=== PATIENT | female | born 1955 | race Caucasian/White ===

== ENCOUNTER 2016-05-26 07:30 | Inpatient (IN) | payer BC ==
--- NOTE | 2016-07-22 16:29 | HP ---
HISTORY AND PHYSICAL: DATE OF SURGERY: 07/28/16 PROCEDURE: Right total knee arthroplasty. CHIEF COMPLAINT: Right knee pain. HISTORY OF PRESENT ILLNESS: Ms. Obrien is a 61-year-old female with complaints of right knee pain. She has failed conservative management and has elected to proceed with a right total knee arthropla sty which is scheduled for 07/28/[address] Ferrer. PAST MEDICAL HISTORY: 1. Migraines. 2. GERD. 3. IBS. PAST SURGICAL HISTORY: 1. Right knee arthroscopy with ACL reconstruction. 2. Right ankle ligament repair, cyst removal from the right foot. 3. Synovial cyst removal, lumbar spine. 4. Bunionectomy bilaterally and hysterectomy. CURRENT MEDICATIONS: 1. Nexium. 2. Maxalt. 3. Alprazolam. 4. Acetaminophen. 5. Celebrex. 6. Dicyclomine. ALLERGIES: BIAXIN, AMPICILLIN, PROCARDIA, CARAFATE, LEVAQUIN and AXID. FAMILY HISTORY: Lung cancer and hypertension. SOCIAL HISTORY: She is a 61-year-old female. She lives with her . 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 She does not smoke, use drugs, or alcohol. REVIEW OF SYSTEMS: A complete 14-point review of systems was reviewed with the patient. It is posi tive for severe nausea after anesthesia. Otherwise, is all negative. PHYSICAL EXAMINATION GENERAL: She is well developed, well nourished. She is in no acute distress. VITAL SIGNS: She stands 5 feet 5 inches tall, weighs 180 pounds. Her blood pressure is 135/83. He r heart rate is 77. HEENT: Normocephalic, atraumatic. NECK: Supple. No palpable lymph nodes. Trachea is midline. CARDIO: Regular rate and rhythm. Strong S1, S2. No murmurs, gallops, or rubs. No peripheral edema . PULMONARY: The lungs are clear to auscultation bilaterally. No wheezes, rhonchi, or rales. ABDOMEN: Soft, nontender, and nondistended. MUSCULOSKELETAL: Right lower extremity, the skin is intact. She has tenderness over the medial and lateral joint line. There is a mild joint effusion. She has full range of motion. No varus or va lgus instability. 2+ dorsalis pedis pulses, intact sensation, and her lower extremity muscle group strengths are intact at 5/5. NEUROLOGIC: She is alert and oriented x3. Cranial nerves II through XII are intact. ASSESSMENT AND PLAN: Ms. Obrien is a 61-year-old female with complaints of right knee pain seconda ry to advanced osteoarthritis. She has failed conservative management and has elected to proceed wi th a right total knee arthroplasty. The surgery is scheduled for 07/28/[address] Prince welch discussed the risks and other benefits of the surgery with her today and all of her questions were answered. Coumadin, Percocet, and Colace were all sent to her pharmacy for postoperative pain cont rol and DVT prophylaxis. She will follow up with Dr. Ferrer 10 to 14 days after the surgery. NATIVIDAD FREITAS [id number]/[facility] #: [id number]
[2016-07-28] MEDS ORDERED: Buffered Lidocaine 1% SYRIN* 3 ML/SYR SYRINGE INTRADERM ONE (06:00)
[2016-07-28] MEDS ORDERED: Dexamethasone IV* 4 MG/ML 1 ML (4 MG) IV SLOW PU ONE (06:00)
[2016-07-28] MEDS ORDERED: fentaNYL* 50 MCG/ML 2 ML VIAL (100 MCG VIAL) ONE ×3 (09:20→12:10)
[2016-07-28] MEDS ORDERED: HYDROmorphone* 1 MG/ML 1 ML SYR ONE ×3 (09:20→13:15)
[2016-07-28] MEDS ORDERED: Morphine PF AMP (0.5MG/ML)* 5 MG/10 ML AMP ONE (09:20)
[2016-07-28] MEDS ORDERED: Midazolam* 1 MG/ML 5 ML VIAL (5 MG) ONE (09:20)
[2016-07-28] MEDS ORDERED: Dexamethasone IV* 4 MG/ML 1 ML (4 MG) ONE (09:26)
[2016-07-28] MEDS ORDERED: Clindamycin 900 MG IVPREMIX(* 900 MG/50 ML SDV IV ONE (09:27)
[2016-07-28] MEDS ORDERED: Bupivacaine 0.5% SDV PF* 30 ML VIAL ONE (10:10)
[2016-07-28] MEDS ORDERED: Dexmedetomidine* 200 MCG/2 ML 2 ML VIAL ONE (10:10)
[2016-07-28] MEDS ORDERED: Propofol* 10 MG/ML 20 ML BTL IV PUSH ONE (10:10)
[2016-07-28] MEDS ORDERED: fentaNYL* 50 MCG/ML 2 ML VIAL (100 MCG VIAL) IV PRN (11:15)
[2016-07-28] MEDS ORDERED: DiMENhydriNATE IV* 50 MG/ML VIAL IV PUSH PRN ×2 (11:15→15:48)
[2016-07-28] MEDS ORDERED: Ondansetron INJ* 2 MG/ML VIAL IV PRN ×2 (11:15→15:48)
[2016-07-28] MEDS ORDERED: Scopolamine 1.5 mg* PATCH TRANSDERM PRN ×2 (11:15→15:48)
[2016-07-28] MEDS ORDERED: Midazolam* 1 MG/ML 2 ML VIAL (2 MG) ONE (12:59)
[2016-07-28] MEDS ORDERED: Magnesium Hydroxide LIQ* 30 ML UDC PO PRN (15:47)
[2016-07-28] MEDS ORDERED: Bisacodyl SUPP* 10 MG SUPP PR PRN (15:47)
[2016-07-28] MEDS ORDERED: Polyethylene Glycol 3350* 17 GM PACKET PO PRN (15:47)
[2016-07-28] MEDS ORDERED: LACTULOSE* 30 ML UDC PO PRN (15:47)
[2016-07-28] MEDS ORDERED: diPHENhydraMINE IV* 50 MG/ML 1 ml VIAL (BENADRYL) IV PRN (15:48)
[2016-07-28] MEDS ORDERED: oxyCODONE/Acetamin 5/325 MG* TAB PO PRN (15:48)
[2016-07-28] MEDS ORDERED: Nalbuphine* 20 MG/ML 1 ML VIAL IV PRN (15:48)
[2016-07-28] MEDS ORDERED: Naloxone* 0.4 MG/ML 1 ML VIAL IV PRN (15:48)
[2016-07-28] MEDS ORDERED: Scopolomine PATCH Remove* 1 NOTE MISC PATCH OFF PRN (15:48)
[2016-07-28] MEDS ORDERED: ALPRAZolam TAB* 0.5 MG PO PRN (15:51)
--- NOTE | 2016-07-28 16:22 | RAD ---
Indication: Post op RIGHT total knee replacement. Comparison: March 09, 2016 Technique: Portable AP and cross table lateral views RIGHT knee. Report: Status post total knee replacement. Post-op fluid and gas is seen in the joint space and anterior subcutaneous tissues. Alignment is anatomic. No periprosthetic fracture evident. IMPRESSION: Normal post-op appearance following total RIGHT knee replacement.
[2016-07-28] MEDS ORDERED: Warfarin TAB(*) 6 MG PO ONE ×2 (17:00→21:00)
[2016-07-28] MEDS: Dicyclomine CAP* 10 MG PO SCH (17:52)
[2016-07-28] MEDS ORDERED: DiMENhydriNATE IV* 50 MG/ML VIAL ONE (18:03)
[2016-07-28] MEDS: Clindamycin 600 MG IVPREMIX(* 600 MG/50 ML SDV IV SCH (20:53)
[2016-07-28] MEDS: Docusate CAP* 100 MG PO SCH (20:53)
[2016-07-29] MEDS ORDERED: Acetaminophen TAB* 325 MG PO PRN (05:05)
[2016-07-29] MEDS ORDERED: oxyCODONE/Acetamin 5/325 MG* TAB PO PRN (05:05)
[2016-07-29] MEDS ORDERED: diPHENhydraMINE IV* 50 MG/ML 1 ml VIAL (BENADRYL) IV PRN (05:05)
[2016-07-29] MEDS: oxyCODONE/Acetamin 5/325 MG* TAB PO PRN ×5 (05:08→22:53)
[2016-07-29] MEDS: Clindamycin 600 MG IVPREMIX(* 600 MG/50 ML SDV IV SCH ×2 (05:09→13:01)
[2016-07-29 06:38] LABS: Hematocrit 32 % (35-47); Hemoglobin 10.7 g/dl (12.0-16.0)
[2016-07-29 06:54] LABS: BUN/Creatinine Ratio 18.8 (8-20); Calcium 8.7 mg/dL (8.6-10.3); EGFR African American 94.4 (>60); EGFR Non-African American 73.4 (>60); Potassium 3.9 mmol/L (3.5-5.0)
--- NOTE | 2016-07-29 09:04 | PN ---
Progress Note - Progress Note SOAP: Subjective: pt resting comfortably in bed with no complaints Objective: Vital Signs Temp Pulse Resp BP Pulse Ox 97.5 F 62 16 100/55 100 07/29/16 07:24 07/29/16 07:24 07/29/16 07:24 07/29/16 07:24 07/29/16 07:24 Laboratory Last Values Hgb 10.7 g/dl (12.0-16.0) L 07/29/16 06:14 Hct 32 % (35-47) L 07/29/16 06:14 INR (Anticoag Therapy) 1.06 (0.89-1.11) 07/29/16 06:14 Sodium 134 mmol/L (133-145) 07/29/16 06:14 Potassium 3.9 mmol/L (3.5-5.0) 07/29/16 06:14 Chloride 101 mmol/L (101-111) 07/29/16 06:14 Carbon Dioxide 28 mmol/L (22-32) 07/29/16 06:14 Anion Gap 5 mmol/L (2-11) 07/29/16 06:14 BUN 15 mg/dL (6-24) 07/29/16 06:14 Creatinine 0.80 mg/dL (0.51-0.95) 07/29/16 06:14 Est GFR ( Amer) 94.4 (>60) 07/29/16 06:14 Est GFR (Non-Af Amer) 73.4 (>60) 07/29/16 06:14 BUN/Creatinine Ratio 18.8 (8-20) 07/29/16 06:14 Glucose 165 mg/dL (70-100) H 07/29/16 06:14 Calcium 8.7 mg/dL (8.6-10.3) 07/29/16 06:14 incision: c/d/i PE: intact B/L LE stregths, intact sensation, 2+ DP Assessment: s/p right TKA Plan: 1) continue PT/OT 2) Continue Coumadin/ Lovenox for DVT prophylaxis; INR today 1.06, will give 8mg tonight 3) likely D/C home tomorrow
[2016-07-29] MEDS: Docusate CAP* 100 MG PO SCH ×2 (10:03→20:05)
[2016-07-29] MEDS: Enoxaparin(*) 30 MG/0.3 ML SYR SUBCUT SCH (13:01)
[2016-07-29] MEDS: Ondansetron TAB* 4 MG PO PRN (15:25)
[2016-07-29] MEDS: Morphine INJ* 2 MG/ML 1 ML SYRINGE IV PRN ×2 (15:25→20:06)
--- NOTE | 2016-07-29 16:16 | OP ---
OPERATIVE NOTE: DATE OF OPERATION: 07/28/2016 DATE OF : 1955 SURGEON: Yen Ferrer MD ORTHOTIST OR PROSTHETIST: NATIVIDAD Thomas ANESTHESIOLOGIST: Dr. Davis. ANESTHESIA TYPE: Spinal. PRE-OP DIAGNOSIS: Severe degenerative osteoarthritis of the right knee joint. POST-OP DIAGNOSIS: Severe degenerative osteoarthritis of the right knee joint. PROCEDURE PERFORMED: Right total knee arthroplasty. COMPLICATIONS: None. TOURNIQUET TIME: 53 minutes. SPECIMEN: Bone and cartilage from the right knee joint sent to pathology. ESTIMATED BLOOD LOSS: 300 cc. HARDWARE USED: [employer] cemented total knee hardware. For the right femur, a size 5 narrow Oxinium posterior stabilized, size 3 left tibia 29 mm 3-peg all poly patella and an 11 mm posterior stabilized insert size 3-4. BRIEF HISTORY/INDICATIONS: Ms. Obrien is a 61-year-old female with years of increasingly severe rig ht knee pain. She failed conservative treatment with antiinflammatory pain medications, intraarticu lar injections, physical therapy, and . She elected to undergo right total knee arthroplasty due to continued pain and decreased quality of life. Informed consent was obtained from the patient . She understood the risk of the procedure, included but were not limited to bleeding, infection, da mage to nearby structures, continued pain, need for further surgery, intraoperative fracture, nerve palsy, hardware failure or loosening, stiffness of knee, loss of motion, stroke, heart attack, blood clot, and . She wished to proceed. INTRAOPERATIVE FINDINGS: Intraoperatively, the patient was noted to have severe degeneration in a t ricompartmental fashion. Full loss of cartilage in the medial, lateral, and patellofemoral compartm ents. She had a 10-degree varus deformity. DESCRIPTION OF PROCEDURE: Ms. Obrien was identified in the preanesthesia unit. Her right lower extr emity was marked as the correct operative side. Informed consent was signed and placed in the chart . The patient was taken to the operating room and placed under spinal anesthesia. A Khan catheter was placed. Tourniquet was placed on the right thigh. Right lower extremity was prepped and drape d in usual sterile fashion. Preop time-out was made to correctly identify the patient's side and si te. Appropriate perioperative antibiotics were given within one hour of incision. A 12-cm midline incision was made with a 10 blade and carried down to the extensor mechanism. A new 10 blade was used to make a standard medial peripatellar arthrotomy. The patella was subluxed laterally. Electrocautery was used to subperiosteally elevate soft tissue off the superomedial tibia to the mid sagittal plane. Osteophytes along the proximal tibia were care fully removed. The knee was flexed up. The anterior horn of the lateral meniscus and ACL was sharply released. A d rill was used to enter the distal femur. Intramedullary distal femoral cutting guide was pinned in the position on the distal femur. Oscillating saw was used to make the appropriate distal femoral cu t. External rotation guide was pinned on the distal femur and the femur was sized to a size 5. Size 5 multicutting jig was placed on the distal femur. Oscillating saw was used to make the appropriat e 4 chamfer cuts. Any bone fragments were carefully removed. The PCL was completely released. The tibia was subluxed anteriorly. Extramedullary tibial cutting g uide was placed on the proximal tibia changing the proper position. Oscillating saw was used to forrest e a proximal tibial cut perpendicular to the mechanical axis of the tibia. The bone was carefully r emoved. The knee was brought into full extension. A spacer block had been fit with medial and later al ligamentous balancing. Flexion and extension gaps were well balanced. The knee was flexed up. Lamina bar assistant was placed both medially and laterally. Any remaining menis cus were carefully removed with electrocautery. Several osteophytes were removed from the posterior capsule. Tibial tray and drop kenya once again confirmed satisfactory tibial cut. A trial 5 narrow right femoral component was impacted on the femur. Trial size 3 tibia and 9 mm insert trial was odilia narayan. The knee was taken through a range of motion. The knee was stable with good range of motion, f ull extension to 130 degrees of flexion with good patellofemoral tracking. The patella was everted. 9 mm of patellar bone and cartilage was carefully removed from the patella using the oscillating s aw. The patella was sized to a 29. The 3 peg holes were drilled to the size 29 guide. Trial 29 pa tella was placed and the knee was taken through a range of motion. There was good patellofemoral tr acking. All trials were carefully removed. The tibia was subluxed anteriorly and sized to a size 3. Proxim al tibia was repaired using a keel punch. All bony cut surfaces were copiously irrigated with steri le saline and dried. Final implants were cemented in the place starting with the tibia followed by the femur and last the patella. A 11-mm insert trial was chosen and placed while the knee was broug ht out to full extension. The cement was allowed to fully cure. Tourniquet was turned down at 53 m inutes. Once the cement was fully cured, the insert trial was removed. Any excess cement was carefu lly removed around the implant. Electrocautery was used to obtain meticulous hemostasis. Final ins ert chosen was 11-mm size 3-4 posterior stabilized insert. This was locked into position of the tib ial tray. Stability of the insert was checked and rechecked and noted to be stable. The knee was co piously irrigated with sterile saline. Extensor mechanism was closed using interrupted #1 Vicryl. The rest of the incision was closed in a layered fashion using 0 and 2-0 Vicryl. Skin was closed us ing running 3-0 nylon suture. Xeroform, 4x4s, and Webril were used to cover the incision. Dinesh wrap and cold pack were placed over this. The patient's anesthesia was reversed without difficulty. She was taken to the PACU in stable condi tion. Intended DVT prophylaxis will be Coumadin with Lovenox bridge. Intended weightbearing will b e weightbearing as tolerated. [id number]/[facility] #: [id number]
[2016-07-29] MEDS ORDERED: Warfarin TAB(*) 4 MG PO ONE (17:00)
[2016-07-29] MEDS: Dicyclomine CAP* 10 MG PO SCH (17:59)
[2016-07-29] MEDS: oxyCODONE TAB* 5 MG TAB PO PRN (20:58)
[2016-07-30] MEDS: oxyCODONE TAB* 5 MG TAB PO PRN ×4 (00:56→21:49)
[2016-07-30] MEDS: oxyCODONE/Acetamin 5/325 MG* TAB PO PRN (03:10)
[2016-07-30] MEDS: Ondansetron TAB* 4 MG PO PRN ×2 (05:49→11:56)
[2016-07-30 07:27] LABS: Hematocrit 31 % (35-47); Hemoglobin 10.6 g/dl (12.0-16.0); Mean Platelet Volume 8 um3 (7.4-10.4)
[2016-07-30] MEDS ORDERED: oxyCODONE TAB* 5 MG TAB PO PRN (08:08)
[2016-07-30] MEDS: Docusate CAP* 100 MG PO SCH ×2 (08:36→21:49)
[2016-07-30] MEDS ORDERED: oxyCODONE/Acetamin 5/325 MG* TAB PO PRN ×2 (10:06→10:07)
--- NOTE | 2016-07-30 10:10 | PN ---
Progress Note - Progress Note SOAP: Subjective: [61 y/o female s/o R TKA 07/[address] Ferrer. Patient reports increased pain overnight, tearful, fatigued. Pain regimen discussed with patient. VSS overnight. ] Objective: [General- well appearing, NAD, AO, tearful MSK- dressing removed, incision D/C/I, new dressing placed, minimal dry bloody drainage noted on bandage, + DF/PF, PT, DP 2+ b/l, minimal edema RLE. sensation grossly intact RLE. Vital Signs Temp 97.8 F 07/30/16 07:59 Pulse 82 07/30/16 07:59 Resp 16 07/30/16 09:49 BP 123/73 07/30/16 07:59 Pulse Ox 99 07/30/16 07:59 Intake & Output 07/29/16 07/30/16 07/30/16 18:59 06:59 18:59 Intake Total 1420 1940 Output Total 1475 1750 Balance -55 190 Intake: IV Fluids 920 ABX - CLINDAMYCIN 100 LR 820 Oral 500 1940 Output: Urine 1200 1750 Khan 275 Laboratory Results - last 24 hr 07/30/16 07/30/16 07:10 07:10 Hgb 10.6 L Hct 31 L Plt Count 207 MPV 8 INR (Anticoag Therapy) 1.64 H Assessment: [61 y/o female s/o R TKA 07/[address] Ferrer] Plan: - DVT prophylaxis- coumadin, lovenox. Continue lovenox, coumadin doses to 6mg tonight. - Continue PT - Possible D/C tomorrow - Pain medication increased to oxycontin 10mg q12 hours, percocet 1-2 tablets q4hrs. ]
[2016-07-30] MEDS: oxyCODONE SR TAB(*) 10 MG TAB.SR PO SCH ×2 (11:56→21:49)
[2016-07-30] MEDS: Enoxaparin(*) 30 MG/0.3 ML SYR SUBCUT SCH (11:57)
[2016-07-30] MEDS: Morphine INJ* 2 MG/ML 1 ML SYRINGE IV PRN ×4 (12:33→23:50)
[2016-07-30] MEDS ORDERED: oxyCODONE TAB* 5 MG TAB PO ONE (16:10)
[2016-07-30] MEDS ORDERED: Warfarin TAB(*) 6 MG PO ONE (17:00)
[2016-07-30] MEDS: Dicyclomine CAP* 10 MG PO SCH (17:54)
[2016-07-30] MEDS: ALPRAZolam TAB* 0.5 MG PO SCH (21:48)
[2016-07-31] MEDS: oxyCODONE TAB* 5 MG TAB PO PRN ×4 (01:51→12:47)
[2016-07-31] MEDS: Morphine INJ* 2 MG/ML 1 ML SYRINGE IV PRN (04:07)
[2016-07-31] MEDS: Ondansetron TAB* 4 MG PO PRN (06:02)
[2016-07-31] MEDS: Docusate CAP* 100 MG PO SCH (08:35)
[2016-07-31] MEDS: ALPRAZolam TAB* 0.5 MG PO SCH (08:36)
[2016-07-31] MEDS: oxyCODONE SR TAB(*) 10 MG TAB.SR PO SCH (08:36)
[2016-07-31 08:44] VITALS: BP 144/71
[2016-07-31 08:53] LABS: Hematocrit 34 % (35-47); Hemoglobin 11.3 g/dl (12.0-16.0)
--- NOTE | 2016-07-31 10:03 | PN ---
Progress Note - Progress Note SOAP: Subjective: [61 y/o female s/p R TKA 07/[address] Ferrer. Patient feeling better today, slept last night, pain under control with current regimen. ANxious about returning to home, no steps, family will be with patient. No SOB, N. [place] with PT. ] Objective: [General- Well appearing, NAD, sitting in chair comfortably, mildly anxious MSK- dressing removed, incision D/C/I, new dressing placed, + DF/PF, PT, DP 2+ b /l, no edema RLE. sensation grossly intact RLE. ] Vital Signs Temp 97.9 F 07/31/16 08:04 Pulse 92 07/31/16 08:04 Resp 20 07/31/16 08:36 BP 144/71 07/31/16 08:04 Pulse Ox 100 07/31/16 08:04 Intake & Output 07/30/16 07/31/16 07/31/16 18:59 06:59 18:59 Intake Total 600 0 200 Output Total 825 1750 Balance -225 -1750 200 Intake: Oral 600 0 200 Output: Urine 825 1750 Other: # Bowel Movements 0 Laboratory Results - last 24 hr 07/31/16 07/31/16 08:04 08:04 Hgb 11.3 L Hct 34 L INR (Anticoag Therapy) 2.44 H Assessment: [61 y/o female s/p R TKA 07/[address] Ferrer.] Plan: [- D/C to home today - INR theraputic, d/c lovenox, hold INR today - F/U with Dr Ferrer within 1 week - Continue current pain regimen, spoke about titrating down at home based on pain level. ] Active Medications Generic Name Dose Route Start Last Admin Trade Name Freq PRN Reason Stop Dose Admin Acetaminophen 650 mg 07/29/16 05:05 Tylenol Tab* PO Q4H PRN PAIN OR TEMPERATURE Alprazolam 0.5 mg 07/30/16 21:00 07/31/16 08:36 Xanax Tab* PO 0.5 mg TID BRANNON Administration Bisacodyl 10 mg 07/28/16 15:47 Dulcolax Supp* SD DAILY PRN constipation Dicyclomine HCl 10 mg 07/28/16 18:00 07/30/16 17:54 Bentyl Cap* PO Not Given QPM BRANNON Diphenhydramine HCl 12.5 mg 07/29/16 05:05 Benadryl Iv* IV Q6H PRN PRURITIS Docusate Sodium 100 mg 07/28/16 21:00 07/31/16 08:35 Colace Cap* PO 100 mg BID BRANNON Administration Lactated Ringer's 1,000 mls @ 100 mls/hr 07/28/16 16:00 07/29/16 04:33 Lactated Ringers 1000 Ml Bag* IV 100 mls/hr PER RATE BRANNON Administration Lactulose 30 ml 07/28/16 15:47 Lactulose* PO Q6H PRN constipation Magnesium Hydroxide 30 ml 07/28/16 15:47 07/31/16 08:35 Milk Of Magnesia Liq* PO 30 ml Q6H PRN Administration constipation Morphine Sulfate 2 mg 07/29/16 05:05 07/31/16 04:07 Morphine Inj (Syringe)* IV 2 mg Q2H PRN Administration PAIN Ondansetron HCl 4 mg 07/29/16 05:05 07/31/16 06:02 Zofran Tab* PO 4 mg Q6H PRN Administration NAUSEA Oxycodone HCl 10 mg 07/30/16 12:00 07/31/16 08:36 Oxycontin(*) PO 10 mg Q12HR BRANNON Administration Oxycodone HCl 15 mg 07/30/16 16:04 07/31/16 05:59 Roxycodone Tab* PO 15 mg Q3H PRN Administration PAIN - MODERATE Pharmacy Profile Note 1 note 07/31/16 11:15 07/31/16 09:50 Scopolomine Patch Remove* PATCH OFF 07/31/16 11:16 Not Given Q72H ONE Pharmacy Profile Note 0 note 07/31/16 17:00 Coumadin Daily Reminder* FOLLOW UP 1700 BRANNON Polyethylene Glycol/Electrolytes 17 gm 07/28/16 15:47 Miralax* PO DAILY PRN Constipation Scopolamine 1 patch 07/28/16 15:48 Transderm-Scop 1.5 Mg Patch* TRANSDERM Q72H PRN nausea
[2016-07-31] MEDS ORDERED: Scopolomine PATCH Remove* 1 NOTE MISC PATCH OFF ONE (11:15)
--- NOTE | 2016-08-01 03:44 | DS ---
DISCHARGE SUMMARY: DATE OF ADMISSION: 07/28/16 DATE OF DISCHARGE: 07/31/16 PROCEDURE: Right total knee arthroplasty. CHIEF COMPLAINT: 1. Right knee osteoarthritis. 2. Migraines. 3. GERD. 4. IBS. DISCHARGE DIAGNOSES: 1. Status post right total knee arthroplasty. 2. Migraines. 3. Gastroesophageal reflux disease. 4. Irritable bowel syndrome. CONSULTATIONS: 1. Physical Therapy. 2. Occupational Therapy. BRIEF HISTORY: Ms. Obrien is a very pleasant 61-year-old female with severe end - stage degenerative osteoarthritis of the right knee who failed conservative treatment and elected to undergo a right total knee arthroplasty on 07/28/[address] Yen Ferrer. HOSPITAL COURSE: Ms. Obrien was admitted to the [facility] on where she underwent a right total knee arthroplasty. Postoperatively, she recovered on the surgical short stay unit. By postoperative day 2, her Khan was removed. She was voiding on her own without difficulty. She advanced to regular diet without difficulty. She had some difficulty with controlling her pain and her pain medication was increased to OxyContin 10 mg b.i.d. and oxycodone 5 to 15 mg q.3 hours p.r.n. with adequate pain relief. She advanced appropriately with physical therapy. Her DVT prophylaxis was managed with Lovenox and Coumadin until she reached a therapeutic INR. By postoperative day 3, she was orthopedically and medically stable for discharge to go home with home services. PHYSICAL EXAMINATION: General: Well-appearing, in no acute distress, alert and oriented, resting comfortably in chair, mildly anxious. Vital Signs: On the date of discharge, temperature 97.9, pulse 92, respirations 20, blood pressure 144/71, pulse ox 100% on room air. Extremities: Right lower extremity , the dressing was removed. The incision is clean, dry and intact. A new dressing was placed. Positive dorsiflexion and plantar flexion, bilateral lower extremities. Posterior tibial and dorsalis pedis pulses 2+ bilaterally with no edema. The right lower extremity grossly intact. Sensation grossly intact, right lower extremity. LABORATORY DATA: On date of discharge, hemoglobin and hematocrit of 11.3 and 34 with an INR of 2.44. Radiographs: Postoperative films showed a prosthetic knee in proper placement. DISCHARGE MEDICATIONS: 1. Xanax 0.5 mg p.o. t.i.d. p.r.n. 2. Bentyl 10 mg p.o. q.p.m. 3. Colace 100 mg p.o. b.i.d. 4. OxyContin 10 mg p.o. q.12 hours. 5. Oxycodone 5 to 15 mg p.o. q.3 hours p.r.n. 6. Acetaminophen 500 mg p.o. q.6 hours p.r.n. 7. Doxycycline 100 mg p.o. b.i.d. 8. Nexium 40 mg p.o. q.a.m. 9. Migdalia D 1 tablet daily. 10. Maxalt 10 mg p.o. t.i.d. p.r.n. 11. Coumadin 10 mg p.o. q. 5 p.m. daily 1 to 3 tablets as directed by physician. CONDITION ON DISCHARGE: Stable. DISCHARGE INSTRUCTIONS: Ms. Obrien is a very pleasant 61-year-old female postoperative day 3, status post right total knee arthroplasty, which was uncomplicated. She is orthopedically and medically stable for discharge home with home services. Her labs and vital signs are stable. She will restart her home medications. She will hold her Coumadin dose tonight and will have an INR draw on 08/01/16. She will have INR draws every Monday and with visiting home nurse services. She will remain weightbearing as tolerated on the right lower extremity. She will have home physical therapy up to twice a week. She will take OxyContin 10 mg q.12 hours and oxycodone 5 to 15 mg as needed p.r.n. q.3 hours. She will take Colace up to 3 times a day for constipation. She will follow up with Dr. Ferrer on 08/05/16 for incision check and suture removal. She was instructed to go to the ER should she develop chest pain or shortness of breath. Should she develop fever, increasing pain or redness, she is to call the office immediately. NATIVIDAD GARCIA [id number]/[facility] #: [id number] [place]
== END 2016-07-31 13:30 | disposition home or self-care (01) | DRG 302 ==
LOC: AA 07-28 09:09 → SSU 07-28 17:45
PROVIDERS: ADMIT Orthopaedic Surgery Adult Reconstructive Orthopaedic Surgery; ATTEND Orthopaedic Surgery Adult Reconstructive Orthopaedic Surgery
PROC: 0SRC0J9 Replacement of Right Knee Joint with Synthetic Substitute, Cemented, Open Approach (ICD-10-PCS; principal; 2016-07-28 11:30)
DX: M17.11 Unilateral primary osteoarthritis, right knee (principal); G43.909 Migraine, unspecified, not intractable, without status migrainosus; M25.761 Osteophyte, right knee; K21.9 Gastro-esophageal reflux disease without esophagitis; K58.9 Irritable bowel syndrome, unspecified; Z79.1 Long term (current) use of non-steroidal anti-inflammatories (NSAID); Z79.899 Other long term (current) drug therapy; Z88.1 Allergy status to other antibiotic agents; Z88.8 Allergy status to other drugs, medicaments and biological substances; Z80.1 Family history of malignant neoplasm of trachea, bronchus and lung; Z82.49 Family history of ischemic heart disease and other diseases of the circulatory system
CPT/HCPCS: 36415; 80048; 85014; 85018; 85049; 85610; 94760; A9270-GY; J1100; J1170; J1240; J1650; J2250; J2270; J2704; J3010

== ENCOUNTER 2016-09-11 10:05 | Emergency (ER) | payer BC ==
[2016-09-11 11:00] VITALS: BP 127/83
--- NOTE | 2016-09-11 11:52 | UC ---
Complaint Female HPI - HPI Summary HPI Summary: PATIENT PRESENTS WITH SUPRAPUBIC PAIN, URGENCY BUT IS UNABLE TO URINATE WHEN SHE FEELS SHE NEEDS TO GO. SHE IS SEEN BY DR. ELENA. SHE WAS ABLE TO SEE HIM LAST WEEK FOR BLOOD IN THE URINE, CULTURE WAS SENT, BUT NO GROWTH. SHE CALLED [facility] AGAIN TO EXPLAIN SHE WAS HAVING UTI SYMPTOMS, AND HE GAVE HER CIPRO FOR 2 DAYS UNTIL FOLLOW UP ON MONDAY. TODAY SHE ARRIVES D/T WORSENING PAIN AND FEELS SHE NEEDS TO CONTINUE AND ANTIBIOTIC. SHE IS UNABLE URINATE WHILE IN THE UC. - History Of Current Complaint Hx Obtained From: Patient Hx Last Menstrual Period: 20 yrs ?: No Onset/Duration: Gradual Onset Timing: Constant Severity Initially: Moderate Severity Currently: Moderate Pain Intensity: 8 Pain Scale Used: 0-10 Numeric Character: Dull, Cramping Aggravating Factor(s): Movement, Coughing, Urination Alleviating Factor(s): Meds Associated Signs And Symptoms: Positive: Negative - Risk Factors Ectopic Risk Factor: Maternal Age ^ 30 Ovarian Torsion Risk Factor: Negative <Carmen Markham - Last Filed: 09/11/16 11:42> <Julisa Flores - Last Filed: 09/11/16 13:31> - History Of Current Complaint Chief Complaint: UCGU Stated Complaint: URINARY Time Seen by Provider: 09/11/16 11:22 - Allergies/Home Medications Allergies/Adverse Reactions: Allergies Allergy/AdvReac Type Severity Reaction Status Date / Time Ampicillin Allergy Intermediate Hives Verified 09/11/16 11:00 Clarithromycin [From Biaxin] Allergy Intermediate Hives Verified 09/11/16 11:00 Nifedipine [From Procardia] Allergy Intermediate Feet swell Verified 09/11/16 11 :00 and burn Nizatidine [From Axid] Allergy Intermediate migraines Verified 09/11/16 11:00 Sucralfate [From Carafate] Allergy Intermediate metalic Verified 09/11/16 11:00 taste Indomethacin Allergy Headache Verified 09/11/16 11:00 Levofloxacin [From Levaquin] Allergy Muscle Ache Verified 09/11/16 11:00 Saccharin Allergy Hives Verified 09/11/16 11:00 Alcohol AdvReac Headache Verified 09/11/16 11:00 PMH/Surg Hx/FS Hx/Imm Hx Previously Healthy: Yes - DIABETES, KIDNEY STONES AND ANXIETY Endocrine History Of: Reports: Diabetes - ONLY WHEN ...DOES NOT HAVE DIABETES NOW Cardiovascular History Of: Denies: Cardiac Disorders, Hypertension, Pacemaker/ICD, Congestive Heart Failure, Deep Vein Thrombosis Respiratory History Of: Denies: Asthma GI/ History Of: Reports: Kidney Stones - 20 YEARS AGO, NONE SINCE Denies: Renal Disease Neurological History Of: Reports: Migraine - PRN MED Psychological History Of: Reports: Anxiety - PRN MED - Surgical History Surgical History: Yes Surgery Procedure, Year, and Place: Hysterectomyright knee surgeryright ankle ligamentbunionectomy bilatlap surgsynovial cyst from spine - Family History Known Family History: Positive: Unknown - Social History Occupation: Employed Full-time Lives: With Family Alcohol Use: None Alcohol Amount: allergic to it Substance Use Type: None Smoking Status (MU): Former Smoker Amount Used/How Often: 1 ppd Have You Smoked in the Last Year: No When Did the Patient Quit Smoking/Using Tobacco: 1993 - Immunization History Most Recent Influenza Vaccination: 1850-8588 Most Recent Pneumonia Vaccination: Never <Carmen Markham - Last Filed: 09/11/16 11:42> Review of Systems Constitutional: Negative Skin: Negative Respiratory: Negative Cardiovascular: Negative Gastrointestinal: Negative Genitourinary: Dysuria, Urgency, Other - SPASMS Motor: Negative Musculoskeletal: Negative Neurological: Negative Psychological: Anxious All Other Systems Reviewed And Are Negative: Yes <Carmen Markham - Last Filed: 09/11/16 11:42> Physical Exam Triage Information Reviewed: Yes Appearance: Well-Appearing, No Pain Distress, Well-Nourished Vital Signs: Initial Vital Signs Temp 98.2 F 09/11/16 10:53 Pulse 83 09/11/16 10:53 Resp 18 09/11/16 10:53 BP 127/83 09/11/16 10:53 Pulse Ox 100 09/11/16 10:53 Vital Signs Reviewed: Yes Eye Exam: Normal Eyes: Positive: Conjunctiva Clear Neck exam: Normal Neck: Positive: Supple, Nontender, No Lymphadenopathy Respiratory Exam: Normal Respiratory: Positive: Chest non-tender, Lungs clear Cardiovascular Exam: Normal Cardiovascular: Positive: RRR Musculoskeletal Exam: Normal Musculoskeletal: Positive: Strength Intact Neurological Exam: Normal Psychological: Positive: Normal Response To Family, Age Appropriate Behavior Skin Exam: Normal <Carmen Markham - Last Filed: 09/11/16 11:42> Vital Signs: Initial Vital Signs Temp 98.2 F 09/11/16 10:53 Pulse 83 09/11/16 10:53 Resp 18 09/11/16 10:53 BP 127/83 09/11/16 10:53 Pulse Ox 100 09/11/16 10:53 <Julisa Flores - Last Filed: 09/11/16 13:31> Complaint Female Dx - Course Course Of Treatment: PATIENT UNABLE TO URINATE WHILE IN UC. PATIENT HAS CLOSE F /U WITH DR. ELENA TOMORROW. HE HAD GIVEN HER CIPRO BUT DID NOT GIVE PYRIMIDINE. SHE PICKED UP AZO AT THE PHARMACY AND STATED IT HELPED HER SYMPTOMS. CULTURE DID NOT GROW BACTERIA FROM DR. ELENA OFFICE OF A URINE DIP. IT WAS EXPLAINED TO PATIENT THIS MAY BE BLADDER SPASMS AND SHE WILL NEED FOLLOW UP. HOWEVER, WILL FILL A BACTRIM RX AND GIVE PYRIMIDINE AND HAVE HER RETURN TO DR. ELENA TMW. - Differential Dx/Diagnosis Differential Diagnosis/HQI/PQRI: Cervicitis, Pelvic Inflammatory Disease, Urinary Tract Infection Provider Diagnoses: BLADDER SPASMS <Carmen Markham - Last Filed: 09/11/16 11:42> Discharge <Carmen Markham - Last Filed: 09/11/16 11:42> <Julisa Flores - Last Filed: 09/11/16 13:31> - Discharge Plan Condition: Stable Disposition: HOME Prescriptions: Phenazopyridine 200 mg (NF) [Pyridium 200 MG tab] 200 mg PO TID #30 tab Sulfamethox/Trimethoprim DS* [Bactrim DS 800/160 TAB*] 1 tab PO BID #6 tab Patient Education Materials: Urinary Tract Infection in Women (ED) Referrals: Olaf Glaser MD [Primary Care Provider] - Additional Instructions: Dx. Urinary Tract Infection Drink plenty of fluids. Supplement with cranberry or murphy juice. You may also take an over the counter cranberry supplement. If you have any questions about this, you may ask your pharmacist. If your symptoms have not improved in 1-2 days, if you develop fever, sweats or chills, please go to your emergency room, or call your PCP. Antibiotics were prescribed to you. Please take as directed. Supplement with over the counter probiotics on the opposite schedule of your antibiotic to prevent secondary infections. Do not take together as they may counteract each other. Pyridium: This medication is used to treat pain, burning, increased urination, and increased urge to urinate. These symptoms are usually caused by infection, injury, surgery, catheter, or other conditions that irritate the lower urinary tract. Pyridium will treat the symptoms of a urinary tract infection, but this medication does not treat the actual infection. Take the antibiotic that your doctor prescribes to treat your infection. Pyridium will most likely darken the color of your urine to an orange or red color. This is a normal effect and is not cause for alarm unless you have other symptoms such as pale or yellowed skin, fever, stomach pain, nausea, and vomiting. Darkened urine may also cause stains to your underwear, which may or may not be removed by laundering. It can also permanently stain soft contact lenses, and you should not wear them while taking this medicine. Attestation Statement User Type: Provider - I was available for consult. This patient was seen by the PATRICK. The patient was not presented to, seen by, or examined by me. -Anastasiya <Julisa Flores - Last Filed: 09/11/16 13:31>
== END 2016-09-11 11:43 | disposition home or self-care (01) ==
LOC: UCCORT 10:05
DX: N32.89 Other specified disorders of bladder (principal); Z87.442 Personal history of urinary calculi; G43.909 Migraine, unspecified, not intractable, without status migrainosus; F41.9 Anxiety disorder, unspecified; Z90.710 Acquired absence of both cervix and uterus; Z88.1 Allergy status to other antibiotic agents; Z88.8 Allergy status to other drugs, medicaments and biological substances; Z87.891 Personal history of nicotine dependence
CPT/HCPCS: 99211; G0463

== ENCOUNTER 2017-07-29 09:01 | Emergency (ER) | payer BC ==
--- OUTSIDE RECORDS SUMMARY | 2017-07-29 09:11 | XMS REPORT ---
:1955 Author Organization [facility] Address [address] [place] [address] Care Team Providers Name Role Phone Yoel Reynoso Unavailable Unavailable PROBLEMS Type Condition ICD9-CM Code [id number] Onset Condition SNOMED Code Code Dates Status Problem Postmenopausal N95.2 Active 73272760 atrophic vaginitis Problem Other abnormal and R92.8 Active 208549512 inconclusive findings on diagnostic imaging of breast Problem Pelvic and perineal R10.2 Active 686815046 pain Problem Acute vaginitis N76.0 Active 38961533 Problem Flushing R23.2 Active 39703153 Problem Candidiasis of B37.3 Active 91417686 vulva and vagina Problem Urinary tract N39.0 Active 79491395 infection, site not specified Problem Menopausal and N95.1 Active 707317899 female climacteric states ALLERGIES No Information ENCOUNTERS Encounter Location Date Diagnosis [facility] [address] 18 Sep, 2017 OBGYN [place], [place] [id number] [facility] 103 Jun, OBGYN [place] [id number] [facility] 103 Jun, Candidiasis of vulva and OBGYN [facility] vagina B37.3 ; Encounter [place] [id number] for gynecological examination (general) (routine) with abnormal findings Z01.411 ; Encounter for screening for malignant neoplasm of cervix Z12.4 ; Encounter for screening mammogram for malignant neoplasm of breast Z12.31 and Encounter for screening for malignant neoplasm of colon Z12.11 [facility] 103 08 Apr, 2017 Candidiasis of vulva and OBGYN [facility] vagina B37.3 [place] [id number] [address] Feb, Candidiasis of vulva and OBGYN [address] [place], vagina B37.3 [place] [id number] [facility] 103 Jan, OBGYN [place] [id number] [facility] 103 Jan, Candidiasis of vulva and OBGYN [facility], vagina B37.3 [place] [id number] [facility] 103 Dec, Candidiasis of vulva and OBGYN [facility], vagina B37.3 [place] [id number] [facility] 103 Nov, OBGYN [place] [id number] [facility] 103 Oct, OBG[place] [id number] [facility] 103 Sep, Other specified OBN [facility], noninflammatory disorders [place] [id number] of vagina N89.8 and Hematuria, unspecified R31.9 [facility] 103 Sep, Candidiasis of vulva and OBGYN [facility], vagina B37.3 [place] [id number] [facility] 103 Sep, [facility] R10.2 [place] [id number] [facility] 103 Sep, Pelvic and perineal pain OBGYN [facility], R10.2 [place] [id number] [facility] 103 Sep, Acute vaginitis N76.0 [place] [id number] [facility] 103 Sep, [facility] R[facility] ; Acute vaginitis [place] [id number] N76.0 and Urinary tract infection, site not specified N39.0 [facility] 103 Sep, OBGYN [place] [id number] [facility] 103 August, OBG[place] [id number] [facility] 103 Jun, [facility] gy[facility]ological examination [place] [id number] (general) (routine) with abnormal findings Z01.411 ; Encounter for screening mammogram for malignant neoplasm of breast Z12.31 ; Encounter for screening for malignant neoplasm of colon Z12.11 ; Menopausal and female climacteric states N95.1 ; Flushing R23.2 and Candidiasis of vulva and vagina B37.3 [facility] 103 Jun, Candidiasis of vulva and OBGYN [facility], vagina B37.3 [place] [id number] [facility] 103 May, Encounter for [facility], gynecological examination [place] [id number] (general) (routine) with abnormal findings Z01.411 ; Encounter for screening mammogram for malignant neoplasm of breast Z12.31 ; Encounter for screening for malignant neoplasm of colon Z12.11 ; Menopausal and female climacteric states N95.1 ; Flushing R23.2 and Candidiasis of vulva and vagina B37.3 [facility] 103 May, ROUTINE HEALTH PSYCHOLOGIST EXAMINATION [facility], V72.31 ; [place] [id number] Mammogram-Abnormal 793.80 ; Atrophic Vaginitis 627.3 ; SCREEN MALIG NEOP-COLON V76.51 and SCREEN MAMMOGRAM NEC V76.12 [facility] 103 Nov, [place] [id number] [facility] 103 Nov, Mammogram 793.80 [place] [id number] [facility] 103 Nov, [place] [id number] [facility] 103 August, [place] [id number] [facility] 103 Jun, Mammogram-Abnormal 793.80 [place]BG[place] [id number] [facility] 103 May, ROUTINE HEALTH PSYCHOLOGIST EXAMINATION OBGYN [facility], V72.31 ; SCREEN MALIG [place] [id number] NEOP-COLON V76.51 and SCREEN MAMMOGRAM NEC V76.12 [facility] 103 May, [place] [id number] [facility] 103 May, [place], [place] [id number] [facility] 103 May, ROUTINE HEALTH PSYCHOLOGIST EXAMINATION OBGYN [facility], V72.31 ; Atrophic [place] [id number] Vaginitis 627.3 ; Candidal vulvovaginitis 112.1 ; SCREEN MAMMOGRAM NEC V76.12 and SCREEN MALIG NEOP-COLON V76.51 [facility] 103 May, [place] [id number] [facility] 103 May, ROUTINE HEALTH PSYCHOLOGIST EXAMINATION OBGYN [facility], V72.31 ; Atrophic [place] [id number] Vaginitis 627.3 and Candidal vulvovaginitis 112.1 [facility] 103 Jan, [place] [id number] [facility] 103 August, [place] [id number] [facility] 103 Apr, ROUTINE HEALTH PSYCHOLOGIST EXAMINATION OBGYN [facility], V72.31 [place] [id number] [facility] 103 Jan, [place] [id number] [facility] 103 Mar, ROUTINE HEALTH PSYCHOLOGIST EXAMINATION OBGYN [facility], V72.31 and Candidiasis NOS [place] [id number] 112.9 [facility] 103 Mar, ROUTINE HEALTH PSYCHOLOGIST EXAMINATION OBGYN [facility], V72.31 and Candidiasis of [place] [id number] vagina 112.1 [facility] 103 Jan, [place] [id number] [facility] 103 Jan, [place] [id number] [facility] 103 Dec, [place] [id number] [facility] 103 August, [place] [id number] [facility] 103 Jul, [place] [id number] [facility] 103 Apr, [place] [id number] [facility] 103 Apr, [place] [id number] [facility] 103 Apr, [place] [id number] [facility] 103 Apr, [place] [id number] [facility] 103 Apr, [place] [id number] [facility] 103 Mar, ROUTINE HEALTH PSYCHOLOGIST EXAMINATION OBGYN [facility], V72.31 ; Candidiasis of [place] [id number] vagina 112.1 and Urinary frequency 788.41 [facility] 103 Feb, [place] [id number] [facility] 103 August, [place] [id number] [facility] 103 Jan, [place] [id number] [facility] 103 16 Jan, 2006 PELVIC PAIN 625.9 [place] [id number] [facility] 103 09 Jan, 2006 PELVIC PAIN 625.9 [place] [id number] [facility] 103 Jan, [place] [id number] [facility] 103 Jan, PELVIC PAIN 625.9 and OBGYN [facility], Ovarian cyst NOS 620.2 [place] [id number] [facility] 103 Jan, ROUTINE HEALTH PSYCHOLOGIST EXAMINATION OBGYN [facility], V72.31 ; Ovarian cyst NOS [place] [id number] 620.2 ; PELVIC PAIN 625.9 and Candidiasis of vagina 112.1 UNKNOWN Jan, [facility] 103 15 Dec, 2004 [place] [id number] [facility] Dec, [place] [id number] [facility] 103 Dec, [place] [id number] [facility] 103 Dec, Well Adult exam V 70.0 ; OBGYN [facility], ROUTINE HEALTH PSYCHOLOGIST EXAMINATION [place] [id number] V72.31 and Candidiasis of vagina 112.1 [facility] 103 Nov, [place] [id number] [facility] 103 Nov, [place] [id number] IMMUNIZATIONS No Known Immunizations SOCIAL HISTORY Never Assessed REASON FOR REFERRAL FUNCTIONAL STATUS PLAN OF CARE VITAL SIGNS MEDICATIONS Unknown Medications PROCEDURES No Known procedures RESULTS No Results REASON FOR VISIT CMP due early September MEDICAL (GENERAL) HISTORY Type Description Date Medical History Bladder Infections Medical History diabetes mellitus-gestational Medical History IBS Medical History Arthritis Medical History migraines Medical History OAB Medical History chronic yeast infections Surgical History Hysterectomy 1995 Surgical History knee surgery 1979 Surgical History ankle surgery 1978 Surgical History cyst on spine removed 11/10/09 Surgical History R foot surgery x 2 2011 Surgical History cinovial cyst removed from spine 2012 Surgical History Total Knee replacement - right 2017 Hospitalization History see above Hospitalization History Kidney stones Hospitalization History [facility]
--- OUTSIDE RECORDS SUMMARY | 2017-07-29 09:11 | XMS REPORT ---
:1955 External Reference #:[id number] Author Organization [facility] Address [address] [place] [address] Phone [phone] Care Team Providers Name Role Phone Olaf Glaser M.D. Care Team Information Hyperion Developer Unavailable Olaf Glaser M.D. Primary Care Physician Unavailable Payers Type Date Identification Numbers Payment Provider Subscriber Commercial Policy Number: [id number] [facility] [employer] [employer] PayID: [id number] [address] [address] [place] [address] Problems Date Description Provider Status Onset: 07/01/2013 Chronic rhinitis Dexter Osorio MD Active Onset: 09/25/2015 Other specified disorders of Eustachian Dexter Osorio MD Active tube, bilateral Onset: 09/25/2015 Temporomandibular joint disorder Dexter Osorio MD Active Onset: 04/23/2015 Disorder of nasal cavity Dexter Osorio MD Active Family History Date Family Member(s) Problem(s) Comments General Cancer General Diabetes General Hearing Loss General Migraine Social History Type Date Description Comments Occupation [employer] Cigarette Use Former Cigarette Smoker 1/2 Pack x 20 yrs, quit at age 40 Daily Cigars Never Smoked Cigars Pipe Never Smoked A Pipe Smokeless Tobacco Never Used Smokeless Tobacco ETOH Use Denies alcohol use Allergies, Adverse Reactions, Alerts Date Description Reaction Status Severity Comments 06/28/2013 Carafate metallic taste in mouth active 06/28/2013 Nizatidine migraine active 06/28/2013 Biaxin hives active 06/28/2013 Ampicillin hives active 06/28/2013 Procardia feet swelling, burning active Medications Medication Date Status Form Strength Qnty SIG Indications Ordering Provider Nexium Active Capsules DR 40mg 60cap 1 po qd Alfredito, /0000 s Olaf Wolff Maxalt-SECURITY CONTROL ASSESSOR Active Tablets 10mg 8tabs 1 under Alfredito, /0000 Dispers tongue Olaf hernandez M.D. headache, may repeat in 2 hours if needed Diflucan Active Tablets 150mg 3tabs 1 po prn Alfredito, /0000 for yeast Olaf Wolff Xanax Active Tablets 5mg prn for Alfredito, /0000 anxiety Angemaaddi Wolff Migdalia D Active prn Self 0000 Betamethasone Active Cream 0.05% apply Alfredito, Dipropionate twice a Ahmad day [facility] affected area Rizatriptan Active Tablets 10mg Unknown Benzoate /0000 Nitrofurantoin Active Capsules 100mg Unknown Monohydrate/Macro /0000 crystals Omeprazole Active Capsules DR 40mg Unknown /0000 Alprazolam Active Tablets 0.5mg take 1 Unknown /0000 tablet by mouth three times a day Sulfamethoxazole/ Active Tablets 800-160mg take 1 Unknown Trimethoprim DS 0000 tablet by mouth twice a day Methylprednisolon Active TBPK 4mg Unknown e /0000 Vesicare Active Tablets 10mg Unknown /0000 Flonase 08/02 Hx Suspension 50mcg/Act 1unit 2 puffs Dexter s both side Ruparelia - once per MD Medrol Dosepak 06/28 Hx Tablets 4mg 1tabs as Dexter prescribed Devon - MD 08/01 Doxycycline Hx Capsules 100mg 14cap take one Alfredito, Hyclate /0000 s capsule by Ahmad - mouth M.D. 08/01 every for 14 days Fluticasone Hx Suspension 50mcg/Act 3unit 2 sprays Unknown Propionate /0000 s in each - nostril 10/10 Gentamicin Hx Unknown Alfredito, Sulfate /0000 Ahmad - [facility] 10/10 Vital Signs Date Vital Result Comment 07/14/2017 Weight 175.00 lb Weight in kg's 79.380 Height 64 inches 5'4" Height in cm's 162.6 cm BMI (Body Mass Index) 30.0 kg/m2 09/25/2015 BP Systolic 113 mmHg BP Diastolic 82 mmHg Heart Rate 83 /min Respiratory Rate 17 /min Weight 180.00 lb Weight in kg's 81.648 Height 64 inches 5'4" Height in cm's 162.6 cm BMI (Body Mass Index) 30.9 kg/m2 10/10/2013 BP Systolic 131 mmHg BP Diastolic 73 mmHg Heart Rate 77 /min Respiratory Rate 16 /min Weight 174.00 lb Weight in kg's 78.926 Height 64 inches 5'4" Height in cm's 162.6 cm BMI (Body Mass Index) 29.9 kg/m2 08/02/2013 BP Systolic 120 mmHg BP Diastolic 77 mmHg Heart Rate 65 /min Respiratory Rate 16 /min Weight 172.00 lb Weight in kg's 78.019 Height 64 inches 5'4" Height in cm's 162.6 cm BMI (Body Mass Index) 29.5 kg/m2 06/28/2013 BP Systolic 141 mmHg BP Diastolic 85 mmHg Heart Rate 75 /min Respiratory Rate 16 /min Weight 172.12 lb Weight in kg's 78.076 Height 64 inches 5'4" Height in cm's 162.6 cm BMI (Body Mass Index) 29.5 kg/m2 Results Description No Information Procedures Date CPT Code Description Status 09/25/2015 34401 Tympanometry Completed 09/25/2015 31950 Comprehensive Audiogram Completed Encounters Type Date Location Provider CPT E/M Dx Office Visit 09/25/2015 9:45a [facility],After 04/24/07 [place] [address] M26.60 J31.0 H69.83 Office Visit 04/23/2015 2:45p [facility],After 04/24/07 [place] [address] J34.0 Office Visit 10/10/2013 2:00p [facility],After 04/24/07 [place] [address] 524.60 Office Visit 08/02/2013 8:30a [facility],After 04/24/07 [place] [address] 473.0 472.0 Office Visit 06/28/2013 9:15a [facility],After 04/24/07 [place] [address] 473.0 472.0 Plan of Care Future Appointment(s):07/31/2017 11:15 am - Dexter Osorio MD at [place],After - Dexter Osorio MDJ32.0 Chronic maxillary sinusitisNew Xrays: CT Sinuses W/OComments:Symptoms suggestive of chronic sinusitis, symptoms suggestive of chronic recurring otitis media not improving with medical management I think a CT of the paranasal sinuses and include the temporal bonewould be helpful. She may require management of her sinuses to reduce the frequency of infections of the ears she also required tympanostomy tube.J31.0 Chronic mqvmgdcgO33.83 Other specified disorders of Eustachian tube, ygwwcympmC97.23 Chronic serous otitis media, bilateral
--- OUTSIDE RECORDS SUMMARY | 2017-07-29 09:11 | XMS REPORT ---
:1955 Author Organization [facility] Address [address] [place] [address] Care Team Providers Name Role Phone Yoel Reynoso Unavailable Unavailable PROBLEMS Type Condition ICD9-CM Code [id number] Onset Condition SNOMED Code Code Dates Status Problem Postmenopausal N95.2 Active 87126460 atrophic vaginitis Problem Other abnormal and R92.8 Active 167430812 inconclusive findings on diagnostic imaging of breast Problem Pelvic and perineal R10.2 Active 629237081 pain Problem Acute vaginitis N76.0 Active 94552300 Problem Flushing R23.2 Active 65850865 Problem Candidiasis of B37.3 Active 29043992 vulva and vagina Problem Urinary tract N39.0 Active 02904509 infection, site not specified Problem Menopausal and N95.1 Active 044368281 female climacteric states ALLERGIES No Information ENCOUNTERS Encounter Location Date Diagnosis [facility] 103 Sep, [place] [id number] [facility] Jun, [place] [id number] [facility] 103 Jun, [place] [id number] [facility] 103 Jun, [place] [id number] [facility] 103 Jun, Candidiasis of vulva and OBGYN [facility], vagina B37.3 ; Encounter [place] [id number] for gynecological examination (general) (routine) with abnormal findings Z01.411 ; Encounter for screening for malignant neoplasm of cervix Z12.4 ; Encounter for screening mammogram for malignant neoplasm of breast Z12.31 and Encounter for screening for malignant neoplasm of colon Z12.11 [facility] 08 Apr, 2018 Candidiasis of vulva and OBGYN [facility] vagina B37.3 [place] [id number] [place] [facility] Feb, Candidiasis of vulva and OBGYN [address] [place], vagina B37.3 [place] [id number] [place] [facility] 103 Jan, [place] [id number] [place] [facility] 103 Jan, Candidiasis of vulva and OBGYN [facility] vagina B37.3 [place] [id number] [place] [facility] 103 Dec, Candidiasis of vulva and OBGYN [facility] vagina B37.3 [place] [id number] [place] [facility] 103 Nov, [place] [id number] [place] [facility] 103 Oct, [place] [id number] [place] [facility] 103 Sep, Other specified OBGYN [facility], noninflammatory disorders [place] [id number] of vagina N89.8 and Hematuria, unspecified R31.9 [place] [facility] 103 Sep, Candidiasis of vulva and OBGYN [facility] vagina B37.3 [place] [id number] [place] [facility] 103 Sep, Pelvic and perineal pain OBGYN [facility], R10.2 [place] [id number] [place] [facility] 103 Sep, Pelvic and perineal pain OBGYN [facility], R10.2 [place] [id number] [place] [facility] 103 Sep, Acute vaginitis N76.0 [place] [id number] [place] [facility] 103 Sep, Pelvic and perineal pain OBGYN [facility], R10.2 ; Acute vaginitis [place] [id number] N76.0 and Urinary tract infection, site not specified N39.0 [facility] 103 Sep, [place] [id number] [facility] 103 August, [place] [id number] [facility] 103 Jun, [facility] [place] [id number] (general) (routine) with abnormal findings Z01.411 ; Encounter for screening mammogram for malignant neoplasm of breast Z12.31 ; Encounter for screening for malignant neoplasm of colon Z12.11 ; Menopausal and female climacteric states N95.1 ; Flushing R23.2 and Candidiasis of vulva and vagina B37.3 [facility] 103 Jun, Candidiasis of vulva and OBGYN [facility], vagina B37.3 [place] [id number] [facility] 103 May, Encounter for [facility] gynecological examination [place] [id number] (general) (routine) with abnormal findings Z01.411 ; Encounter for screening mammogram for malignant neoplasm of breast Z12.31 ; Encounter for screening for malignant neoplasm of colon Z12.11 ; Menopausal and female climacteric states N95.1 ; Flushing R23.2 and Candidiasis of vulva and vagina B37.3 [facility] 103 May, ROUTINE VP RHEUMATOLOGY EXAMINATION [facility] V72.31 ; [place] [id number] Mammogram-Abnormal 793.80 ; Atrophic Vaginitis 627.3 ; SCREEN MALIG NEOP-COLON V76.51 and SCREEN MAMMOGRAM NEC V76.12 [facility] 103 Nov, [place] [id number] [facility] 103 Nov, Mammogram 793.80 [place] [id number] [place] [facility] 103 Nov, [place] [id number] [place] [facility] 103 August, [place] [id number] [place] [facility] 103 Jun, Mammogram-Abnormal 793.80 [place] [id number] [facility] 103 May, ROUTINE VP RHEUMATOLOGY EXAMINATION OBGYN [facility], V72.31 ; SCREEN MALIG [place] [id number] NEOP-COLON V76.51 and SCREEN MAMMOGRAM NEC V76.12 [place] [facility] 103 May, [place] [id number] [facility] 103 May, [place] [id number] [place] [facility] 103 May, ROUTINE VP RHEUMATOLOGY EXAMINATION OBGYN [facility], V72.31 ; Atrophic [place] [id number] Vaginitis 627.3 ; Candidal vulvovaginitis 112.1 ; SCREEN MAMMOGRAM NEC V76.12 and SCREEN MALIG NEOP-COLON V76.51 [place] [facility] 103 May, [place] [id number] [facility] 103 May, ROUTINE VP RHEUMATOLOGY EXAMINATION OBGYN [facility], V72.31 ; Atrophic [place] [id number] Vaginitis 627.3 and Candidal vulvovaginitis 112.1 [place] [facility] 103 Jan, [place] [id number] [place] [facility] 103 August, [place] [id number] [place] [facility] 103 Apr, ROUTINE VP RHEUMATOLOGY EXAMINATION OBGYN [facility], V72.31 [place] [id number] [place] [facility] 103 Jan, [place] [id number] [place] [facility] 103 Mar, ROUTINE VP RHEUMATOLOGY EXAMINATION OBGYN [facility], V72.31 and Candidiasis NOS [place] [id number] 112.9 [place] [facility] 103 Mar, ROUTINE VP RHEUMATOLOGY EXAMINATION OBGYN [facility], V72.31 and [place] [address] vagina 112.1 [place] [facility] 103 Jan, [place] [id number] [facility] 103 Jan, [place] [id number] [facility] 103 Dec, [place] [id number] [place] [facility] 103 August, [place] [id number] [place] [facility] 103 Jul, [place] [address] [place] [facility] 103 Apr, [place] [id number] [place] [facility] 103 Apr, [place] [id number] [facility] 103 Apr, [place] [id number] [place] [facility] 103 Apr, [place] [id number] [place] [facility] 103 Apr, [place] [id number] [facility] 103 Mar, ROUTINE VP RHEUMATOLOGY EXAMINATION OBGYN [facility], V72.31 ; [place] [id number] vagina 112.1 and Urinary frequency 788.41 [place] [facility] 103 Feb, [place] [id number] [place] [facility] 103 August, [place] [id number] [place] [facility] 103 Jan, [place] [id number] [place] [facility] 103 Jan, PELVIC PAIN 625.9 [place] [id number] [place] [facility] 103 Jan, PELVIC PAIN 625.9 [place] [id number] [place] [facility] 103 Jan, [place] [id number] [place] [facility] 103 Jan, PELVIC PAIN 625.9 and OBGYN [facility], Ovarian cyst NOS 620.2 [place] [id number] [place] [facility] 103 Jan, ROUTINE VP RHEUMATOLOGY EXAMINATION OBGYN [facility], V72.31 ; Ovarian cyst NOS [place] [id number] 620.2 ; PELVIC PAIN 625.9 and Candidiasis of vagina 112.1 UNKNOWN Jan, [place] [facility] 103 15 Dec, 2004 [place] [id number] [place] [facility] 103 Dec, [place] [id number] [place] [facility] 103 Dec, [place] [id number] [place] [facility] 103 Dec, Well Adult exam V 70.0 ; [facility] ROUTINE VP RHEUMATOLOGY EXAMINATION [place] [id number] V72.31 and Candidiasis of vagina 112.1 [place] [facility] 103 Nov, [place] [id number] [facility] 103 29 Nov, 2004 [place] [id number] IMMUNIZATIONS No Known Immunizations SOCIAL HISTORY Never Assessed REASON FOR REFERRAL FUNCTIONAL STATUS PLAN OF CARE VITAL SIGNS MEDICATIONS Unknown Medications PROCEDURES No Known procedures RESULTS No Results REASON FOR VISIT Update Demographics - Personal Info MEDICAL (GENERAL) HISTORY Type Description Date Medical History Bladder Infections Medical History diabetes mellitus-gestational Medical History IBS Medical History Arthritis Medical History migraines Medical History OAB Medical History chronic yeast infections Surgical History Hysterectomy 1995 Surgical History knee surgery 1979 Surgical History ankle surgery 1979 Surgical History cyst on spine removed 11/10/09 Surgical History R foot surgery x 2 2011 Surgical History cinovial cyst removed from spine 2012 Surgical History Total Knee replacement - right 2017 Hospitalization History see above Hospitalization History Kidney stones Hospitalization History [facility]
--- OUTSIDE RECORDS SUMMARY | 2017-07-29 09:11 | XMS REPORT ---
:1955 External Reference #:[id number] Author Organization [facility] Address [address] [place] [address] Phone [phone] Care Team Providers Name Role Phone Olaf Glaser M.D. Care Team Information Federal Mediation Commissioner Unavailable Olaf Glaser M.D. Primary Care Physician Unavailable Payers Type Date Identification Numbers Payment Provider Subscriber Commercial Policy Number: [id number] [facility] [employer] PayID: [id number] 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 headache, may repeat in 2 hours if needed Diflucan Active Tablets 150mg 3tabs 1 po prn Alfredito, for yeast Olaf Wolff Xanax Active Tablets 5mg prn for Alfredito, anxiety Olaf Wolff Migdalia D Active prn Self Betamethasone Active Cream 0.05% apply Alfredito, Dipropionate twice a Olaf covarrubias M.D. affected area Rizatriptan Active Tablets 10mg Unknown Benzoate 0000 Nitrofurantoin Active Capsules 100mg Unknown Monohydrate/Macro crystals Omeprazole Active Capsules DR 40mg Unknown /0000 Alprazolam Active Tablets 0.5mg take 1 Unknown 0000 tablet by mouth three times a day Sulfamethoxazole/ Active Tablets 800-160mg take 1 Unknown Trimethoprim tablet by mouth twice a day Methylprednisolon Active TBPK 4mg Unknown e /0000 Vesicare Active Tablets 10mg Unknown /0000 Flonase 08/02 Hx Suspension 50mcg/Act 1unit 2 puffs s both side Ruparlyndon - once per MD Medrol Dosepak 06/28 Hx Tablets 4mg 1tabs as prescribed Ruefren - MD 08/01 Doxycycline Hx Capsules 100mg 14cap take one Alfredito, Hyclate s capsule by Ahmaaddi - mouth M.DStar 08/01 every day for 14 days Fluticasone Hx Suspension 50mcg/Act 3unit 2 sprays Unknown Propionate /0000 s in each - nostril 10/10 qday /2014 Gentamicin 00/00 Hx Unknown Alfredito, Sulfate /0000 Olaf Chisholm M.D. 10/10 Vital Signs Date Vital Result Comment [...] Information Procedures Date CPT Code Description Status 07/28/2017 27004 Tympanometry Completed 09/25/2015 93529 Tympanometry Completed 09/25/2015 53072 Comprehensive Audiogram Completed Encounters Type Date Location Provider CPT E/M Dx Office Visit 07/28/2017 8:30a [place],After 04/24/07 [place] [address] J31.0 H69.83 J32.0 Office Visit 07/14/2017 9:15a [place],After 04/24/07 [place] [address] J32.0 J31.0 H69.83 H65.23 Office Visit 09/25/2015 9:45a [place],After 04/24/07 [place] [address] M26.60 J31.0 H69.83 Office Visit 04/23/2015 2:45p [place],After 04/24/07 [place] [address] J34.0 Office Visit 10/10/2013 2:00p [place],After 04/24/07 [place] [address] 524.60 Office Visit 08/02/2013 8:30a [place],After 04/24/07 [place] [address] 473.0 472.0 Office Visit 06/28/2013 9:15a [place],After 04/24/07 [place] [address] 473.0 472.0 Plan of Care Future Appointment(s):09/28/2017 8:30 am - Dexter Osorio MD at [place],After - Dexter Osorio MDJ31.0 Chronic rhinitisNew Medication: Montelukast Sodium 10 mgComments:To try her on some Singulair 10 mg daily. I think at this point really is very little evidence on the CT scan of middle ear or mastoid disease, clearly the paranasal sinuses are absolutely clear. I think we can treat her as if she has some allergy issues that may be contributing to this recheck backin 2 or 3 months.H69.83 Other specified disorders of Eustachian tube, khjrtovqjN96.0 Chronic maxillary sinusitisNew Medication:Sulfamethoxazole/Trimethoprim DS 800-160 mg
--- OUTSIDE RECORDS SUMMARY | 2017-07-29 09:11 | XMS REPORT ---
:1955 Author Organization [facility] Address [address] [place] [address] Care Team Providers Name Role Phone Yoel Reynoso Unavailable Unavailable PROBLEMS Type Condition ICD9-CM Code [id number] Onset Condition SNOMED Code Code Dates Status Problem Postmenopausal N95.2 Active 41086706 atrophic vaginitis Problem Other abnormal and R92.8 Active 689440833 inconclusive findings on diagnostic imaging of breast Problem Pelvic and perineal R10.2 Active 525747666 pain Problem Acute vaginitis N76.0 Active 55555920 Problem Flushing R23.2 Active 28212403 Problem Candidiasis of B37.3 Active 44911693 vulva and vagina Problem Urinary tract N39.0 Active 01550642 infection, site not specified Problem Menopausal and N95.1 Active 088928235 female climacteric states ALLERGIES No Information ENCOUNTERS Encounter Location Date Diagnosis [facility] 103 Sep, [place], [place] [id number] [facility] 103 Jun, [place], [place] [id number] [facility] 103 Jun, [place], [place] [id number] [facility] 103 Jun, [place] [id number] [facility] 103 Jun, Candidiasis of vulva and OBGYN [facility], vagina B37.3 ; Encounter [place] [id number] for gynecological examination (general) (routine) with abnormal findings Z01.411 ; Encounter for screening for malignant neoplasm of cervix Z12.4 ; Encounter for screening mammogram for malignant neoplasm of breast Z12.31 and Encounter for screening for malignant neoplasm of colon Z12.11 [facility] 103 08 Apr, 2018 Candidiasis of vulva and OBGYN [facility] vagina B37.3 [place] [id number] [place] [facility] Feb, Candidiasis of vulva and OBGYN [address] [place], vagina B37.3 [place] [id number] [place] [facility] 103 Jan, [place], [place] [id number] [place] [facility] 103 Jan, Candidiasis of vulva and OBGYN [facility] vagina B37.3 [place] [id number] [place] [facility] 103 Dec, Candidiasis of vulva and OBGYN [facility] vagina B37.3 [place] [id number] [place] [facility] 103 Nov, [place] [id number] [place] [facility] 103 Oct, [place] [id number] [place] [facility] 103 Sep, Other specified OBGYN [facility], noninflammatory disorders [place] [id number] of vagina N89.8 and Hematuria, unspecified R31.9 [place] [facility] 103 Sep, Candidiasis of vulva and OBGYN [facility] vagina B37.3 [place] [id number] [place] [facility] 103 Sep, Pelvic and perineal pain OBGYN [facility], R10.2 [place] [id number] [place] [facility] 103 Sep, Pelvic and perineal pain OBGYN [facility], R10.2 [place] [id number] [place] [facility] 103 Sep, Acute vaginitis N76.0 [place] [id number] [place] [facility] 103 Sep, Pelvic and perineal pain OBGYN [facility], R10.2 ; Acute vaginitis [place] [id number] N76.0 and Urinary tract infection, site not specified N39.0 [facility] 103 Sep, [place] [id number] [facility] 103 August, [place], [place] [id number] [facility] 103 Jun, [facility] examination [place] [id number] (general) (routine) with abnormal findings Z01.411 ; Encounter for screening mammogram for malignant neoplasm of breast Z12.31 ; Encounter for screening for malignant neoplasm of colon Z12.11 ; Menopausal and female climacteric states N95.1 ; Flushing R23.2 and Candidiasis of vulva and vagina B37.3 [facility] 103 Jun, Candidiasis of vulva and OBGYN [facility], vagina B37.3 [place] [id number] [facility] 103 May, Encounter for [facility] gynecological examination [place] [id number] (general) (routine) with abnormal findings Z01.411 ; Encounter for screening mammogram for malignant neoplasm of breast Z12.31 ; Encounter for screening for malignant neoplasm of colon Z12.11 ; Menopausal and female climacteric states N95.1 ; Flushing R23.2 and Candidiasis of vulva and vagina B37.3 [facility] 103 May, ROUTINE SOLID DIE CUTTER EXAMINATION [facility], V72.31 ; [place] [id number] Mammogram-Abnormal 793.80 ; Atrophic Vaginitis 627.3 ; SCREEN MALIG NEOP-COLON V76.51 and SCREEN MAMMOGRAM NEC V76.12 [facility] 103 Nov, [place] [id number] [facility] 103 Nov, Mammogram 793.80 [place] [id number] [place] [facility] 103 Nov, [place], [place] [id number] [place] [facility] 103 August, [place]BG[place], [place] [id number] [place] [facility] 103 Jun, Mammogram-Abnormal 793.80 [place] [id number] [facility] 103 May, ROUTINE SOLID DIE CUTTER EXAMINATION OBGYN [facility], V72.31 ; SCREEN MALIG [place] [id number] NEOP-COLON V76.51 and SCREEN MAMMOGRAM NEC V76.12 [place] [facility] 103 May, OBG[place], [place] [id number] [facility] 103 May, [place], [place] [id number] [place] [facility] 103 May, ROUTINE SOLID DIE CUTTER EXAMINATION OBGYN [facility], V72.31 ; Atrophic [place] [id number] Vaginitis 627.3 ; Candidal vulvovaginitis 112.1 ; SCREEN MAMMOGRAM NEC V76.12 and SCREEN MALIG NEOP-COLON V76.51 [place] [facility] 103 May, [place] [id number] [facility] 103 May, ROUTINE SOLID DIE CUTTER EXAMINATION OBGYN [facility], V72.31 ; Atrophic [place] [id number] Vaginitis 627.3 and Candidal vulvovaginitis 112.1 [place] [facility] 103 Jan, [place], [place] [id number] [place] [facility] 103 August, [place], [place] [id number] [place] [facility] 103 Apr, ROUTINE SOLID DIE CUTTER EXAMINATION OBGYN [facility], V72.31 [place] [id number] [place] [facility] 103 Jan, [place]BG[place], [place] [id number] [place] [facility] 103 Mar, ROUTINE SOLID DIE CUTTER EXAMINATION OBGYN [facility], V72.31 and Candidiasis NOS [place] [id number] 112.9 [place] [facility] 103 Mar, ROUTINE SOLID DIE CUTTER EXAMINATION OBGYN [facility], V72.31 and Candidiasis of [place] [address] vagina 112.1 [place] [facility] 103 Jan, [place], [place] [id number] [facility] 103 Jan, [place], [place] [id number] [facility] 103 Dec, [place], [place] [id number] [place] [facility] 103 August, [place], [place] [id number] [place] [facility] 103 Jul, [place] [id number] [place] [facility] 103 Apr, [place] [id number] [place] [facility] 103 Apr, [place] [id number] [facility] 103 Apr, [place], [place] [id number] [place] [facility] 103 Apr, [place], [place] [id number] [place] [facility] 103 Apr, [place], [place] [id number] [facility] 103 Mar, ROUTINE SOLID DIE CUTTER EXAMINATION OBGYN [facility], V72.31 ; Candidiasis of [place] [id number] vagina 112.1 and Urinary frequency 788.41 [place] [facility] 103 Feb, [place]BG[place], [place] [id number] [place] [facility] 103 August, [place], [place] [id number] [place] [facility] 103 Jan, [place], [place] [id number] [place] [facility] 103 Jan, PELVIC PAIN 625.9 [place], [place] [id number] [place] [facility] 103 Jan, PELVIC PAIN 625.9 [place], [place] [id number] [place] [facility] 103 Jan, [place], [place] [id number] [place] [facility] 103 Jan, PELVIC PAIN 625.[address] [facility], Ovarian cyst NOS 620.2 [place] [id number] [place] [facility] 103 Jan, ROUTINE SOLID DIE CUTTER EXAMINATION OBGYN [facility], V72.31 ; Ovarian cyst NOS [place] [id number] 620.2 ; PELVIC PAIN 625.9 and Candidiasis of vagina 112.1 UNKNOWN Jan, [place] [facility] 103 15 Dec, 2004 [place]BG[place], [place] [id number] [facility] 103 Dec, [place], [place] [id number] [facility] 103 Dec, [place]BG[place], [place] [id number] [place] [facility] 103 Dec, Well Adult exam V 70.0 ; [facility] ROUTINE SOLID DIE CUTTER EXAMINATION [place] [id number] V72.31 and Candidiasis of vagina 112.1 [place] [facility] 103 Nov, [place], [place] [id number] [facility] 103 29 Nov, 2004 [place]BG[place], [place] [id number] IMMUNIZATIONS No Known Immunizations SOCIAL HISTORY Never Assessed REASON FOR REFERRAL FUNCTIONAL STATUS PLAN OF CARE VITAL SIGNS MEDICATIONS Unknown Medications PROCEDURES No Known procedures RESULTS No Results REASON FOR VISIT medication allergy MEDICAL (GENERAL) HISTORY Type Description Date Medical [...]
--- OUTSIDE RECORDS SUMMARY | 2017-07-29 09:12 | XMS REPORT ---
:1955 Author Organization [facility] Address [address] [place] [address] Care Team Providers Name Role Phone Yoel Reynoso Unavailable Unavailable PROBLEMS Type Condition ICD9-CM Code [id number] Onset Condition SNOMED Code Code Dates Status Problem Postmenopausal N95.2 Active 31218752 atrophic vaginitis Problem Other abnormal and R92.8 Active 395053765 inconclusive findings on diagnostic imaging of breast Problem Pelvic and perineal R10.2 Active 909635313 pain Problem Acute vaginitis N76.0 Active 04103684 Problem Flushing R23.2 Active 69481227 Problem Candidiasis of B37.3 Active 21436318 vulva and vagina Problem Urinary tract N39.0 Active 17254514 infection, site not specified Problem Menopausal and N95.1 Active 791982296 female climacteric states ALLERGIES Substance Reaction Event Type Date Status saccharine anaphylaxis Drug Allergy Jun, Active ampicillin/ biaxi mix Unknown Drug Allergy Jun, Active Myrbetriq increases BP Drug Allergy Jun, Active Procardia Unknown Drug Allergy Jun, Active Axid Unknown Drug Allergy Jun, Active Levaquin could barely walk Drug Allergy Jun, Active ENCOUNTERS Encounter Location Date Diagnosis [facility] 103 18 Sep, 2017 [place]BG[place] [id number] [facility] 103 Jun, O[place] [id number] [facility] 103 Jun, Candidiasis of vulva and OBGYN [facility], vagina B37.3 ; Encounter [place] [id number] for gynecological examination (general) (routine) with abnormal findings Z01.411 ; Encounter for screening for malignant neoplasm of cervix Z12.4 ; Encounter for screening mammogram for malignant neoplasm of breast Z12.31 and Encounter for screening for malignant neoplasm of colon Z12.11 [facility] 103 Apr, Candidiasis of vulva and OBGYN [facility] vagina B37.3 [place] [id number] [facility] [address] [place] [address] Feb, Candidiasis of vulva and OBGYN [address] [place], vagina B37.3 [place] [id number] [facility] 103 Jan, OBGYN [place] [id number] [facility] 103 Jan, Candidiasis of vulva and OBGYN [facility] vagina B37.3 [place] [id number] [facility] 103 Dec, Candidiasis of vulva and OBGYN [facility] vagina B37.3 [place] [id number] [facility] 103 Nov, OBG[place], [place] [id number] [facility] 103 Oct, OBGYN [place], [place] [id number] [facility] 103 Sep, Other specified OBGYN [facility], noninflammatory disorders [place] [id number] of vagina N89.8 and Hematuria, unspecified R31.9 [facility] 103 Sep, Candidiasis of vulva and OBGYN [facility] vagina B37.3 [place] [id number] [facility] 103 Sep, Pelvic and perineal pain OBGYN [facility], R10.2 [place] [id number] [facility] 103 Sep, Pelvic and perineal pain OBGYN [facility], R10.2 [place] [id number] [facility] 103 Sep, Acute vaginitis N76.0 OBGYN [place] [id number] [facility] 103 Sep, Pelvic and perineal pain OBGYN [address] [facility], R10.2 ; Acute vaginitis [place] [id number] N76.0 and Urinary tract infection, site not specified N39.0 [facility] 103 Sep, [place] [id number] [facility] August, [place] [id number] [facility] 103 Jun, Encounter for [facility], gynecological examination [place] [id number] (general) (routine) with abnormal findings Z01.411 ; Encounter for screening mammogram for malignant neoplasm of breast Z12.31 ; Encounter for screening for malignant neoplasm of colon Z12.11 ; Menopausal and female climacteric states N95.1 ; Flushing R23.2 and Candidiasis of vulva and vagina B37.3 [facility] 103 Jun, Candidiasis of vulva and OBGYN 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[facility], 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.31 ; [place] [id number] Mammogram-Abnormal 793.80 ; Atrophic Vaginitis 627.3 ; SCREEN MALIG NEOP-COLON V76.51 and SCREEN MAMMOGRAM NEC V76.12 [facility] 103 Nov, [place] [id number] [facility] 103 Nov, Mammogram 793.80 [place]BGYN [place], [place] [id number] [facility] 103 Nov, [place]BG[place] [id number] [facility] 103 August, [place]BG[place] [id number] [facility] 103 Jun, Mammogram-Abnormal 793.80 OBGYN [place], [place] [id number] [facility] 103 May, 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, V72.31 and Candidiasis of [place] [id number] vagina 112.1 [facility] 103 Jan, [place] [id number] [facility] 103 Jan, [place], [place] [id number] [facility] 103 Dec, [place]BG[place], [place] [id number] [facility] 103 August, [place] [id number] [facility] 103 Jul, [place], [place] [id number] [facility] 103 Apr, [place] [id number] [facility] 103 Apr, [place] [id number] [facility] 103 Apr, [place] [id number] [facility] 103 Apr, [place], [place] [id number] [facility] 103 Apr, [place], [place] [id number] [facility] 103 Mar, 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, V72.31 ; Candidiasis [place] [id number] vagina 112.1 and Urinary frequency 788.41 [facility] 103 Feb, [place]BG[place] [id number] [facility] 103 August, [place], [place] [id number] [facility] 103 Jan, [place]BG[place] [id number] [facility] 103 Jan, PELVIC PAIN 625.9 [place] [id number] [facility] 103 Jan, PELVIC PAIN 625.9 [place], [place] [id number] [facility] 103 Jan, [place] [id number] [facility] 103 Jan, PELVIC PAIN 625.[address] 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, V72.31 ; Ovarian cyst NOS [place] [id number] 620.2 ; PELVIC PAIN 625.9 and Candidiasis of vagina 112.1 UNKNOWN Jan, [facility] 103 Dec, OBG[place] [id number] [facility] 103 Dec, [place] [id number] [facility] 103 Dec, [place]BG[place], [place] [id number] [facility] 103 Dec, Well Adult exam V 70.0 [facility] R[facility] [employer] MAKER EXAMINATION [place] [id number] V72.31 and Candidiasis of vagina 112.1 [facility] 103 Nov, OBGYN [place], [place] [id number] [facility] 103 29 Nov, 2004 OBGYN [place], [place] [id number] IMMUNIZATIONS No Known Immunizations SOCIAL HISTORY Never Assessed REASON FOR REFERRAL FUNCTIONAL STATUS PLAN OF CARE Activity Details Follow Up F/u 3 mo to candidiasis. Schedule 1 year annual , schedule Mammogram in November Reason: Pending Test SCREENING MAMMOGRAM BILATERAL Pending Test Vaginosis Panel Pending Test COMPREHENSIVE METABOLIC PANEL VITAL SIGNS Height 64.25 in 2017-07-10 Weight 175 lbs 2017-07-10 BMI 29.80 kg/m2 2017-07-10 Blood pressure systolic 120 mm Hg 2017-07-10 Blood pressure diastolic 80 mm Hg 2017-07-10 MEDICATIONS Medication Instructions Dosage Frequency Start End Date Duration Status Date Diflucan 150 orally once weekly 1 tab(s) 1 dose(s) Active mg to supress candidiasis boric acid 400 intravaginally 1 tab(s) Active mg 2x/week Xanax 0.5mg 1 tab Active Bentyl 10 mg orally 4 times a 2 cap(s) Active day prn lidocaine applied topically 1 jennifer 20 Jan, Active topical 5% PRN 2010 Nexium 40 mg Oral qd 1 tab 24h Active Maxalt 10 mg orally PRN 1 tab(s) Active Premarin intravaginally 3 x 1 g Sep, 30 days Active Vaginal 0.625 week at bedtime 2016 mg/g PROCEDURES Procedure Date Ordered Result Body Site ASSAY TEST FOR BLOOD, FECAL July 10, 2017 RESULTS No Results REASON FOR VISIT annual with cand. fup(pt requested [facility]G), do vaginosis panel MEDICAL (GENERAL) HISTORY Type Description Date Medical History Bladder Infections Medical History diabetes mellitus-gestational Medical History IBS Medical History Arthritis Medical History migraines Medical History OAB Medical History chronic yeast infections Surgical History Hysterectomy 1995 Surgical History knee surgery 1979 Surgical History ankle surgery 1979 Surgical History cyst on spine removed 11/10/09 Surgical History R foot surgery x 2 2010 Surgical History cinovial cyst removed from spine 2012 Surgical History Total Knee replacement - right 2017 Hospitalization History see above Hospitalization History Kidney stones Hospital[facility] History [facility]
[2017-07-29 09:36] VITALS: BP 137/70
--- NOTE | 2017-07-29 09:39 | UC ---
Throat Pain/Nasal Al HPI - HPI Summary HPI Summary: 62 year old female with sinus pressure and ear pain . Left ear pain onet 5 days ago. Pt saw ENT 07/28/17 who prescribed singulair and Bactrim; pt had reaction; stopped both meds; hasn't been on antibiotic since. Pt had CT of head, ears, sinuses on last week at [facility]. ENT was treating a ear infection / sinus infection. no fever but took tylenol today. no dizziness. no cp. no cough. [ End ] - History of Current Complaint Stated Complaint: SINUSES,EAR PAIN Time Seen by Provider: 07/29/17 09:16 Hx Obtained From: Patient Hx Last Menstrual Period: 20 yrs Onset/Duration: Gradual Onset Severity: Moderate Pain Intensity: 8 Cough: Productive Related History: Seasonal Allergies - Allergies/Home Medications Allergies/Adverse Reactions: Allergies Allergy/AdvReac Type Severity Reaction Status Date / Time MS Ampicillin [Ampicillin] Allergy Intermediate Hives Verified 09/11/16 11:00 MS Clarithromycin Allergy Intermediate Hives Verified 09/11/16 11:00 [From Biaxin] MS Nifedipine Allergy Intermediate Feet swell Verified 09/11/16 11:00 [From Procardia] and burn MS Nizatidine [From Axid] Allergy Intermediate migraines Verified 09/11/16 11:00 MS Sucralfate [From Carafate] Allergy Intermediate metalic Verified 09/11/16 11: 00 taste alcohol Allergy Headache Verified 07/29/17 10:10 ampicillin Allergy Hives Verified 07/29/17 10:10 clarithromycin [From Biaxin] Allergy Hives Verified 07/29/17 10:10 indomethacin Allergy Headache Verified 07/29/17 10:10 levofloxacin [From Levaquin] Allergy Muscle Ache Verified 07/29/17 10:10 mirabegron [From Myrbetriq] Allergy See Comment Verified 07/29/17 10:10 montelukast Allergy Hives Verified 07/29/17 09:40 MS Indomethacin Allergy Headache Verified 09/11/16 11:00 [Indomethacin] MS Levofloxacin Allergy Muscle Ache Verified 09/11/16 11:00 [From Levaquin] MS Saccharin [Saccharin] Allergy Hives Verified 09/11/16 11:00 nifedipine Allergy Swelling Verified 07/29/17 10:10 nizatidine [From Axid] Allergy Headache Verified 07/29/17 10:10 oxybutynin [From Ditropan] Allergy See Comment Verified 07/29/17 10:10 saccharin Allergy Hives Verified 07/29/17 10:10 sucralfate Allergy See Comment Verified 07/29/17 10:10 sulfamethoxazole Allergy Hives Verified 07/29/17 09:40 [From Bactrim] trimethoprim [From Bactrim] Allergy Hives Verified 07/29/17 09:40 MS Alcohol [Alcohol] AdvReac Headache Verified 09/11/16 11:00 Home Medications: Home Medications Acetaminophen [Acetaminophen Extra Strength] 1,500 mg PO Q6H 07/29/17 [History Confirmed 07/29/17] Montelukast Sodium TAB* [Singulair TAB*] 10 mg PO ONCE 07/29/17 [History Confirmed 07/29/17] diphenhydrAMINE HCl [Benadryl Allergy] 25 mg PO SEE INSTRUCTIONS PRN 07/29/17 [ History Confirmed 07/29/17] guaiFENesin ER TAB [Mucinex*] 600 mg PO BID 07/29/17 [History Confirmed 07/29/17 ] PMH/Surg Hx/FS Hx/Imm Hx Previously Healthy: Yes GI/ History: Gastroesophageal Reflux Psychological History: Anxiety, Depression - Surgical History Surgical History: Yes Surgery Procedure, Year, and Place: Hysterectomy, right knee surgery,right ankle , ligament, bunionectomy bilat, abdominal lap surg, synovial cyst from spine - Family History Known Family History: Positive: Unknown - Social History Alcohol Use: None Alcohol Amount: allergic to it Substance Use Type: None Smoking Status (MU): Former Smoker Amount Used/How Often: 1 ppd Have You Smoked in the Last Year: No When Did the Patient Quit Smoking/Using Tobacco: 1993 - Immunization History Most Recent Influenza Vaccination: [id number] Most Recent Pneumonia Vaccination: Never Review of Systems Constitutional: Fatigue ENT: Ear Ache, Nasal Discharge, Sinus Congestion, Sinus Pain/Tenderness Is Patient Immunocompromised?: No All Other Systems Reviewed And Are Negative: Yes Physical Exam Triage Information Reviewed: Yes Appearance: Well-Appearing, No Pain Distress, Well-Nourished Vital Signs: Initial Vital Signs Temp 99.1 F 07/29/17 09:24 Pulse 85 07/29/17 09:24 Resp 20 07/29/17 09:24 BP 137/70 07/29/17 09:24 Pulse Ox 100 07/29/17 09:24 Vital Signs Reviewed: Yes Eye Exam: Normal ENT Exam: Normal ENT: Positive: TM dull - left, Sinus tenderness - left maxillary Dental Exam: Normal Neck exam: Normal Neck: Positive: 1 Respiratory Exam: Normal Cardiovascular Exam: Normal Musculoskeletal Exam: Normal Neurological Exam: Normal Psychological Exam: Normal Skin Exam: Normal Throat Pain/Nasal Course/Dx - Course Course Of Treatment: Extensive allergy to meds. Resume astelin which she tolerated. start doxy as per ENT concerned for AOM/Sinusitis and tolerated doxy. She requested steroids but has been on them at least 6 times in the past year and I think that is not warranted based on symptoms and vitals and can call ENT / PCP to discuss steroids - Differential Dx/Diagnosis Differential Diagnosis/HQI/PQRI: Otitis Media, Pharyngitis, Sinusitis, Tonsillitis, URI Provider Diagnoses: sinusitis Discharge - Sign-Out/Discharge Documenting (check all that apply): Discharge - Discharge Plan Condition: Good Disposition: HOME Prescriptions: Azelastine 0.15% NASAL(NF) [Astepro 0.15% NASAL (NF)] 1 spray NASAL BID 10 Days #1 spray Doxycycline Hyclate 100 mg PO BID #20 tablet Patient Education Materials: Sinusitis (ED) Referrals: Olaf Glaser MD [Primary Care Provider] - 2 Days (follow up with your PCP or ENT in 2 days ) - Billing Disposition and Condition Condition: GOOD Disposition: HOME
== END 2017-07-29 10:19 | disposition home or self-care (01) ==
LOC: UCCORT 09:01
DX: J32.9 Chronic sinusitis, unspecified (principal); K21.9 Gastro-esophageal reflux disease without esophagitis; F41.9 Anxiety disorder, unspecified; F32.9 Major depressive disorder, single episode, unspecified; Z87.891 Personal history of nicotine dependence
CPT/HCPCS: 99212; G0463

== ENCOUNTER 2018-10-08 08:05 | Emergency (ER) | payer BC ==
--- OUTSIDE RECORDS SUMMARY | 2018-10-08 08:19 | XMS REPORT | Continuity of Care Document ---
:1955 External Reference #:[id number] Author Name Danitza Orr PA-C Address [address] [place] [address] [place] [address] Care Team Providers Name Role Phone Olaf Glaser MD Care Team Information Irrigation Installation Specialist Unavailable Olaf Glaser MD Primary Care Physician Unavailable Payers Date Identification Numbers Payment Provider Subscriber Policy Number: [id number] Of NADYA Contreras PayID: [id number] [address] [address] [place] [address] Problems Active Problems Provider Date Gastroesophageal reflux disease ERVIN Austin Onset: 02/28/2012 Irritable bowel syndrome characterized Danitza Orr PA-C Onset: by alternating bowel habit Abdominal pain Danitza Orr PA-C Onset: 01/29/2018 Amount of mucus in stool abnormal Danitza Orr PA-C Onset: 2017 Anal fissure Danitza Orr PA-C Onset: 01/29/2018 Digestive symptom Danitza Orr PA-C Onset: 01/29/2018 Irritable bowel syndrome characterized Danitza Orr PA-C Onset: 05/2016 by constipation On examination - rebound - right Darren Scott M.D. Onset: 03/03/2015 hypochondrium Melena Darren Scott M.D. Onset: 12/09/2014 Chronic maxillary sinusitis Meena Davis FNP Onset: 01/03/2014 Anxiety state Tae Quezada Onset: 02/06/2012 Mixed hyperlipidemia Tae Quezada Onset: 02/06/2012 Allergic rhinitis Tae Quezada Onset: 02/06/2012 Osteoarthritis Tae Quezada Onset: 02/06/2012 Refractory migraine with aura Stefano Quezadaagustina Onset: 02/06/2012 Peptic reflux disease Tae Quezada Onset: 02/06/2012 Chronic allergic conjunctivitis Tae Quezada Onset: 07/03/2012 Herpes zoster dermatitis Meena Davis FNP Onset: 11/25/2013 Temporomandibular joint disorder Meena Davis FNP Onset: 01/03/2014 Family History Date Family Member(s) Observation Comments Children 2 Social History Type Date Description Comments Sex Unknown ETOH Use Occasionally consumes alcohol Tobacco Use Start: Unknown End: Unknown Patient is a former smoker Smoking Status Reviewed: 09/18/18 Patient is a former smoker Allergies, Adverse Reactions, Alerts Active Allergies Reaction Severity Comments Date Ampicillin 02/28/2012 Levaquin Extreme difficulty walking (knees and 06/12/2014 ankles pain) Carafate 02/28/2012 Procardia 06/20/2012 Saccharin 02/28/2012 Nizatidine 06/20/2012 Biaxin 02/28/2012 Medications Active Medications SIG Qnty Indications Ordering Date Provider Amitriptyline HCL take 2 tablets 60tabs K58.2 Kacey 08/16/2018 10mg by mouth at MD Mekhi Tablets bedtime Dicyclomine HCL 1-2 caps by 270caps K58.2 Jesse Brock DO 06/18/2018 10mg mouth up to 4 Capsules times a day as needed for cramping/pain Ranitidine HCL 1 tab by mouth 30tabs Anahi Beltran, 05/16/2016 150mg every night GEOMAGNETIST-C Tablets Nexium 1 by mouth every 30caps K21.0 Meena Davis F 01/27/[address] day ELEPH[employer] K[employer]PER Rizatriptan Benzoate Unknown 10mg Tablets Alprazolam take 1 tablet Unknown 0.5mg Tablets three times a day Ibuprofen As needed for AlfreditoOlaf MD 800mg Tablets knee pain Vesicare prn Unknown 10mg Tablets History Medications Amitriptyline HCL take 1 tablet by 30tabs K58.2 Jesse Brock, 05/14/2018 - 10mg mouth at bedtime DO 08/16/2018 Tablets Colyte With Flavor by mouth as 4000ml Jesse Brock, 01/30/2018 - Packs directed DO 05/14/2018 240gm Solution Rec Colyte-Flavor Packs As directed 4000ml R19.4 Danitza MyersStar 01/29/2018 - RASHEEDA Orr 01/29/2018 240gm Solution Rec Peg 3350/Electrolytes use as directed 4000ml 578.1 Darren Scott, 2014 - M.D. 03/03/2015 240gm Solution Rec Anusol-HC apply to the 30gm 578.1 Darren Scott, 12/09/2014 - 2.5% Cream affected area M.DStar 03/03/2015 twice daily as needed. Loratadine 1 tab by mouth J30.2 Tae Quezada 08/19/2014 - 10mg Tablets every day as 03/03/2015 needed Systane Balance Apply 1-2 Drops 20units Meena Davis, 02/06/2014 - Restorative Formula In Each Eye Up GEOMAGNETIST 03/03/2015 To 4 Times A Day 0.6% Solution as Needed Butalbital/Acetaminop 2tab q4 hours as 150tabs G43.119 Meena Davis, - hen/Caffeine needed for GEOMAGNETIST 03/03/2015 headache 50-325-40mg Tablets Prednisolone Acetate 1 drop both eyes 15units 372.14 Meena Davis, 07/03 - 1% twice a day as GEOMAGNETIST 03/03/2015 Suspension needed Nasonex instill 2 sprays Unknown - 50mcg/Act into each 03/03/2015 Suspension nostril once daily Relpax take 1 tablet by Unknown - 40mg Tablets mouth if needed 03/03/2015 May repeat one time after 2 hours Nortriptyline HCL 1-2 Ay hs Per Unknown - 10mg Neuro 03/03/2015 Capsules Dicyclomine HCL 1 tab by mouth Unknown - 20mg three times a 06/18/2018 Tablets day as needed Taking 10 MG Once qd, Can Take Up To 3 qd Vital Signs Date Vital Result Comment 09/18/2018 7:53am Height 66 inches 5'6" Weight 181.00 lb BMI (Body Mass Index) 29.2 kg/m2 08/16/2018 8:09am Height 66 inches 5'6" Weight 185.00 lb BMI (Body Mass Index) 29.9 kg/m2 06/18/2018 8:05am Height 66 inches 5'6" BP Systolic 144 mmHg BP Diastolic 82 mmHg Heart Rate 84 /min 05/14/2018 2:16pm Height 66 inches 5'6" Weight 180.00 lb BP Systolic 146 mmHg BP Diastolic 92 mmHg Heart Rate 72 /min BMI (Body Mass Index) 29.0 kg/m2 01/29/2018 9:51am Height 66 inches 5'6" Weight 182.00 lb BP Systolic 161 mmHg BP Diastolic 96 mmHg Heart Rate 78 /min BMI (Body Mass Index) 29.4 kg/m2 11/23/2016 9:36am Height 66 inches 5'6" Weight 168.00 lb BP Systolic 130 mmHg BP Diastolic 84 mmHg Heart Rate 70 /min BMI (Body Mass Index) 27.1 kg/m2 09/23/2016 9:50am Height 66 inches 5'6" Weight 166.00 lb BMI (Body Mass Index) 26.8 kg/m2 05/09/2016 2:38pm Height 66 inches 5'6" Weight 173.00 lb BP Systolic 142 mmHg BP Diastolic 90 mmHg Heart Rate 78 /min BMI (Body Mass Index) 27.9 kg/m2 07/07/2015 3:45pm Height 66 inches 5'6" Weight 178.00 lb BMI (Body Mass Index) 28.7 kg/m2 03/03/2015 3:57pm Height 66 inches 5'6" Weight 179.00 lb BP Systolic 132 mmHg BP Diastolic 74 mmHg Heart Rate 72 /min BMI (Body Mass Index) 28.9 kg/m2 12/09/2014 3:38pm Height 66 inches 5'6" Weight 180.00 lb BP Systolic 122 mmHg BP Diastolic 80 mmHg Heart Rate 72 /min BMI (Body Mass Index) 29.0 kg/m2 02/28/2012 9:21am Height 66 inches 5'6" Weight 170.00 lb BP Systolic 130 mmHg BP Diastolic 86 mmHg Heart Rate 76 /min BMI (Body Mass Index) 27.4 kg/m2 Results Test Date Facility Test Result H/L Range Note Laboratory test 05/01/2018 [facility] Surgical SEE RESULT 1, 2 finding Interface Order BELOW CMP(!) 08/18/2016 [facility] Sodium(!) <pending> Potassium(!) <pending> Chloride Serum/Plasma(!) <pending> Carbon Dioxide Ser/Plasm(!) <pending> BUN - Urea Nitrogen(!) <pending> Calcium Ser/Plasma Mass/Vol(!) <pending> Creatinine Serum Mass/Vol(!) <pending> Glucose Serum(!) <pending> Uric Acid Ser/Plas Mass/Vol(!) <pending> BUN/Creatinine Ratio(!) <pending> Albumin Serum/Plasma(!) <pending> Alkaline Phosphatase(!) <pending> Bilirubin Total Mass/Vol(!) <pending> Ast - Sgot <pending> Alt - SGPT <pending> Protein Total <pending> CBC W/Auto 08/18/2016 [facility] White Blood <pending> Differential(!) Count Ser Auto CNT RBC Red Blood Count <pending> Hemoglobin Blood <pending> Hematocrit <pending> MCV (Corpuscular Volume) <pending> MCH (Corpuscular Hemoglobin) <pending> MCHC (Corpuscular Hemog Conc) <pending> RDW <pending> Platelet Count Blood Auto CNT <pending> MPV <pending> Lymph% <pending> [place]% <pending> Neutrophil % <pending> Absolute Lymphocytes <pending> Absolute Monocytes <pending> Absolute Neutrophils <pending> Laboratory test 01/06/2015 [facility] Surgical Interface SEE RESULT 3 finding Order BELOW [facility] 10/28/2009 [facility] Z#Other Observations <pending> 1 [id number] 2 SEE RESULT BELOW Name: JOSR CONTRERAS : [address]: Jesse Brock DO Acct: [id number] Unit: [id number] AGE: 63 Location: [facility] Re05/01/18 SEX: F Status: DEP REF SPEC: [id number] RAEGAN: 05/01/18- SUBM DR: Jesse Brock DO REQ: [id number] RECD: 05/01/18 STATUS: JESSA PATTERSON DR: Olaf Glaser MD _ ORDERED: LEVEL 4 COMMENTS: [id number] FINAL DIAGNOSIS Colon, sigmoid, biopsy: -- Hyperplastic polyps. CLINICAL HISTORY Change in bowel habits/rectal pain/history of polyps POST-OPERATIVE DIAGNOSIS Colonoscopy complete to cecum; good prep; poor tolerance to moderate sedation ; mild left sided diverticulosis; (4) small sigmoid polyps-biopsy/polypectomy; small internal hemorrhoid; no fissure GROSS DESCRIPTION The specimen is received in formalin labeled, Sigmoid Colon Polyps Biopsy, and consists of a 0.8 x 0.4 x 0.2 cm aggregate of modi-pink irregular soft tissue fragments which is submitted entirely in one cassette. Signed by and Reported on: Andra Ponce MD 05/02/18 1454 END OF REPORT DEPARTMENT OF PATHOLOGY, [address] [place] [address] Donny Vaz M.D. Director [facility] # [id number] SEE RESULT BELOW Name: JOSR CONTRERAS : [address]: Jesse Brock DO Acct: [id number] Unit: [id number] AGE: 63 Location: [facility] Re05/01/18 SEX: F Status: DEP REF SPEC: [id number] RAEGAN: 05/01/18- SUBM DR: Jesse Brock DO REQ: [id number] RECD: 05/01/18120 STATUS: JESSA PATTERSON DR: Olaf Glaser MD _ ORDERED: LEVEL 4 COMMENTS: [id number] FINAL DIAGNOSIS Colon, sigmoid, biopsy: -- Hyperplastic polyps. CLINICAL HISTORY Change in bowel habits/rectal pain/history of polyps POST-OPERATIVE DIAGNOSIS Colonoscopy complete to cecum; good prep; poor tolerance to moderate sedation ; mild left sided diverticulosis; (4) small sigmoid polyps-biopsy/polypectomy; small internal hemorrhoid; no fissure GROSS DESCRIPTION The specimen is received in formalin labeled, Sigmoid Colon Polyps Biopsy, and consists of a 0.8 x 0.4 x 0.2 cm aggregate of modi-pink irregular soft tissue fragments which is submitted entirely in one cassette. Signed by and Reported on: Andra Ponce MD 05/02/18 1454 END OF REPORT DEPARTMENT OF PATHOLOGY, [address] [place] [address] Donny Vaz M.D. Director [facility] # [id number] 3 SEE RESULT BELOW Name: JOSR CONTRERAS : [address]: Darren Scott MD Acct: [id number] Unit: [id number] AGE: 59 Location: [facility] Re01/06/15 SEX: F Status: REG REF SPEC: [id number] RAEGAN: 01/06/150938 [facility] [place] DR: Darren Scott MD REQ: [id number] RECD: 01/06/15 STATUS: JESSA PATTERSON DR: Olaf Glaser MD _ ORDERED: LEVEL IV FINAL DIAGNOSIS Colon, rectum, biopsy: -- Tubular adenoma. -- No high grade dysplasia or malignancy. CLINICAL HISTORY Screening flex sigmoidoscopy with rectal bleeding POST-OPERATIVE DIAGNOSIS Flex sigmoidoscopy to 45 cm., minimal divertics - 3 x 2 mm. sessile polyp cold snare excised at 15 cm.; rectum negative; anorectal junction normal and canal negative, no fissure, small external tag. Rectosigmoid junction colon polypectomy GROSS DESCRIPTION The specimen is received in formalin labeled, Rectal Polyp, and consists of two modi irregular to polypoid soft tissue fragments measuring 0.3 x 0.2 x 0.1 cm and 0.4 x 0.2 x 0.2 cm. The larger fragment is inked, bisected and the specimen is submitted entirely in one cassette. Signed (signature on file) Donny Vaz MD 1129 END OF REPORT * ML=Testing performed at Main Lab DEPARTMENT OF PATHOLOGY, [address] [place] [address] Donny Vaz M.D. Director [facility] # [id number] SEE RESULT BELOW Name: JOSR CONTRERAS : [address]: Darren Scott MD Acct: [id number] Unit: [id number] AGE: 59 Location: [facility] Re01/06/15 SEX: F Status: REG REF SPEC: [id number] RAEGAN: 01/06/15 [facility] [place] DR: Darren Scott MD REQ: [id number] RECD: 01/06/15-5 STATUS: JESSA PATTERSON DR: Olaf Glaser MD _ ORDERED: LEVEL IV FINAL DIAGNOSIS Colon, rectum, biopsy: -- Tubular adenoma. -- No high grade dysplasia or malignancy. CLINICAL HISTORY Screening flex sigmoidoscopy with rectal bleeding POST-OPERATIVE DIAGNOSIS Flex sigmoidoscopy to 45 cm., minimal divertics - 3 x 2 mm. sessile polyp cold snare excised at 15 cm.; rectum negative; anorectal junction normal and canal negative, no fissure, small external tag. Rectosigmoid junction colon polypectomy GROSS DESCRIPTION The specimen is received in formalin labeled, Rectal Polyp, and consists of two modi irregular to polypoid soft tissue fragments measuring 0.3 x 0.2 x 0.1 cm and 0.4 x 0.2 x 0.2 cm. The larger fragment is inked, bisected and the specimen is submitted entirely in one cassette. Signed (signature on file) Donny Vaz MD 1129 END OF REPORT * ML=Testing performed at Main Lab DEPARTMENT OF PATHOLOGY, [address] [place] [address] Donny Vaz M.D. Director [facility] # [id number] Procedures Date Code Description Status 05/01/2018 41387 Moderate Sedation Services; Same Phys Each Additional 15 Completed Mins 05/01/2018 18281 Moderate Sedation Services; Same Phys Each Additional 15 Completed Mins 05/01/2018 39470 Moderate Sedation Services; Same Phys Intl 15 Mins; PT >=5 Completed Years 05/01/2018 97585 Colonscopy+Biopsy Completed 08/11/2015 66158 EGD- Upper Endoscopy Completed 01/06/2015 61610 Flex Sigmoidoscopy Snare Removal Of Tumor/Polyp/Lesion Completed 04/20/2012 72715 EGD- Upper Endoscopy Completed 01/30/2009 87778 Colonoscopy Completed Encounters Type Date Location Provider Dx Diagnosis Office Visit 08/16/2018 [facility] K58.2 Mixed irritable 8:15a [facility]- bowel syndrome K21.9 Gastro-esophageal reflux disease without esophagitis Office Visit 06/18/2018 [facility] K58.2 Mixed 8:15a [facility], PA-C irritable bowel syndrome K21.9 Gastro-esophageal reflux disease without esophagitis Office 05/14/2018 [facility] K21.9 Gastro-esophageal Visit 2:30p [facility], reflux disease PA-C without esophagitis R19.4 Change in bowel habit R19.4 Change in bowel habit K58.2 Mixed irritable bowel syndrome K64.0 First degree hemorrhoids K21.9 Gastro-esophageal reflux disease without esophagitis R19.5 Other fecal abnormalities R19.5 Other fecal abnormalities K64.0 First degree hemorrhoids Office Visit 01/29/2018 [facility] R19.4 Change in 10:00a [facility] PA-C bowel habit R10.30 Lower abdominal pain, unspecified K60.2 Anal fissure, unspecified K21.9 Gastro-esophageal reflux disease without esophagitis Office 11/23/2016 [facility] K21.9 Gastro-esophageal Visit 9:45a [facility] reflux disease PA-C without esophagitis R10.30 Lower abdominal pain, unspecified K58.1 Irritable bowel syndrome with constipation K59.00 Constipation, unspecified Office 09/23/2016 [facility] K21.9 Gastro-esophageal Visit 10:00a [facility] reflux disease PA-C without esophagitis K58.1 Irritable bowel syndrome with constipation Office 05/09/2016 [facility] K58.1 Irritable bowel Visit 2:45p [facility], syndrome with GEOMAGNETIST-C constipation Office 07/07/2015 [facility] Darren Scott, R10.13 Epigastric pain Visit 3:45p [facility] Office 03/10/2015 [facility] Darren Scott, R10.811 Right upper Visit 4:00p [facility] quadrant abdominal tenderness Office 03/03/2015 [facility] Darren Scott, R10.811 Right upper Visit 3:45p [facility] quadrant abdominal tenderness Office 12/09/2014 [facility] Darren Scott, 569.3 Hemorrhage Visit 3:30p [facility] Rectum & Anus 578.1 Blood In Stool Office Visit 02/28/2012 [facility] 530.81 Esophageal 9:30a [facility] Reflux GEOMAGNETIST-C Plan of Treatment Future Appointment(s):12/19/2018 8:00 am - Danitza Orr PA-C [facility] - NATIVIDAD Guillen- CK58.2 Mixed irritable bowel ucjyourpE58.9 Gastro-esophageal reflux disease without esophagitis
[2018-10-08 08:25] VITALS: BP 148/90
--- NOTE | 2018-10-08 08:46 | UC ---
Throat Pain/Nasal Al HPI - HPI Summary HPI Summary: 63-year-old woman comes in with a chief complaint of sore throat and runny nose for 2 days. The rhinorrhea is minimal. Throat hurts worse when she swallows. Slightly less when she does not swallow. She's having chills. No respiratory distress or chest congestion. Patient does have an ear tube in the left ear. - History of Current Complaint Chief Complaint: UCGeneralIllness Stated Complaint: ST,BILATERAL EAR COMPLAINT Time Seen by Provider: 10/08/18 08:30 Hx Last Menstrual Period: 20 yrs Pain Intensity: 10 - Allergies/Home Medications Allergies/Adverse Reactions: Allergies Allergy/AdvReac Type Severity Reaction Status Date / Time alcohol Allergy Headache Verified 10/08/18 08:25 ampicillin Allergy Hives Verified 10/08/18 08:25 clarithromycin [From Biaxin] Allergy Hives Verified 10/08/18 08:25 indomethacin Allergy Headache Verified 10/08/18 08:25 levofloxacin [From Levaquin] Allergy Muscle Ache Verified 10/08/18 08:25 mirabegron [From Myrbetriq] Allergy increased Verified 10/08/18 08:25 BP montelukast Allergy Hives Verified 10/08/18 08:25 nifedipine Allergy Swelling Verified 10/08/18 08:25 of feet, burning nizatidine [From Axid] Allergy Headache Verified 10/08/18 08:25 oxybutynin [From Ditropan] Allergy increased Verified 10/08/18 08:25 BP saccharin Allergy Hives Verified 10/08/18 08:25 sucralfate Allergy metallic Verified 10/08/18 08:25 taste sulfamethoxazole Allergy Hives Verified 10/08/18 08:25 [From Bactrim] trimethoprim [From Bactrim] Allergy Hives Verified 10/08/18 08:25 Home Medications: Home Medications Amitriptyline TAB* [Elavil TAB*] 20 mg PO BEDTIME 10/08/18 [History Confirmed ] PMH/Surg Hx/FS Hx/Imm Hx Previously Healthy: Yes GI/ History: Gastroesophageal Reflux - Surgical History Surgical History: Yes Surgery Procedure, Year, and Place: Hysterectomy, right knee surgery,right ankle , ligament, bunionectomy bilat, abdominal lap surg, synovial cyst from spine Other Surgical History: LEFT EAR TUBE - Family History Known Family History: Positive: Unknown - Social History Alcohol Use: None Alcohol Amount: allergic to it Substance Use Type: None Smoking Status (MU): Former Smoker Amount Used/How Often: 1 ppd Have You Smoked in the Last Year: No When Did the Patient Quit Smoking/Using Tobacco: 1993 - Immunization History Most Recent Influenza Vaccination: [id number] Most Recent Pneumonia Vaccination: Never Review of Systems All Other Systems Reviewed And Are Negative: Yes Constitutional: Positive: Chills Skin: Positive: Negative Eyes: Positive: Negative ENT: Positive: Sore Throat, Nasal Discharge Respiratory: Positive: Negative Cardiovascular: Positive: Negative Gastrointestinal: Positive: Negative Motor: Positive: Negative Neurovascular: Positive: Negative Musculoskeletal: Positive: Myalgia Neurological: Positive: Negative Psychological: Positive: Negative Is Patient Immunocompromised?: No Physical Exam Triage Information Reviewed: Yes Appearance: No Pain Distress, Well-Nourished, Ill-Appearing - MILD Vital Signs: Initial Vital Signs Temp 99.1 F 10/08/18 08:19 Pulse 89 10/08/18 08:19 Resp 18 10/08/18 08:19 BP 148/90 10/08/18 08:19 Pulse Ox 100 10/08/18 08:19 Vital Signs Reviewed: Yes Eye Exam: Normal Eyes: Positive: Conjunctiva Clear ENT: Positive: Pharyngeal erythema, TMs normal, Tonsillar swelling, Tonsillar exudate, Uvula midline, Other - OROPHARYNX OPEN,NO PERITONSILLAR ABSCESS. Negative: Muffled voice, Hoarse voice Neck: Positive: Supple Respiratory: Positive: Lungs clear, Normal breath sounds, No respiratory distress Cardiovascular: Positive: RRR Musculoskeletal: Positive: Strength Intact, ROM Intact Neurological: Positive: Alert, Muscle Tone Normal Psychological: Positive: Age Appropriate Behavior Skin Exam: Normal Throat Pain/Nasal Course/Dx - Course Course Of Treatment: DISCUSSED VIRAL VERSES BACTERIAL INFECTION AND THE ROLE OF ANTIBIOTICS. THE PATIENT PREFERS TO BE ON ANTIBIOTICS AT THIS TIME. - Differential Dx/Diagnosis Provider Diagnosis: Tonsillitis Discharge - Sign-Out/Discharge Documenting (check all that apply): Patient Departure All imaging exams completed and their final reports reviewed: No Studies - Discharge Plan Condition: Stable Disposition: HOME Prescriptions: DOXYcycline CAP(*) [DOXYcycline 100MG CAP(*)] 100 mg PO BID #20 cap methylPREDNISolone [Medrol Dosepak 4 MG*] 0 mg PO .SEE ALMAZ INSTRUCTION #1 almaz Patient Education Materials: Tonsillitis (ED) Referrals: Olaf Glaser MD [Primary Care Provider] - Additional Instructions: FOLLOW UP WITH ENT OR YOUR PRIMARY CARE DOCTOR IF NOT COMPLETELY IMPROVED. GET RECHECKED SOONER IF YOUR CONDITION WORSENS OR ANY QUESTIONS OR CONCERNS. - Billing Disposition and Condition Condition: STABLE Disposition: Home
== END 2018-10-08 08:53 | disposition home or self-care (01) ==
LOC: UCCORT 08:05
DX: J03.90 Acute tonsillitis, unspecified (principal); Z87.891 Personal history of nicotine dependence
CPT/HCPCS: 87651; 99212; G0463

== ENCOUNTER 2019-03-23 12:12 | Emergency (ER) | payer BC ==
[2019-03-23 14:28] VITALS: BP 149/80
--- NOTE | 2019-03-23 14:50 | UC ---
Respiratory Complaint HPI - HPI Summary HPI Summary: Pt presents with c/o of worsening cough and chest tightness. Pt was seen pt PCP on 03/19/19 fo rST and put on z-pac for presumptive strep. Pt states that her nasal congestion, cough, nasal congestion, sinus pressure and pain, and chest "tightness" have worsened since starting z-pac and prednisone as prescribed by PCP. - History of Current Complaint Stated Complaint: COUGH,CHEST CONGESTION Time Seen by Provider: 03/23/19 14:17 Hx Obtained From: Patient Hx Last Menstrual Period: 20 yrs ?: No Onset/Duration: Gradual Onset, Lasting Days, Still Present, Worse Since - onset Timing: Constant Severity Initially: Mild Severity Currently: Moderate Pain Intensity: 5 Character: Cough: Nonproductive Aggravating Factors: Deep Breaths, Recumbent Position Associated Signs And Symptoms: Positive: Nasal Congestion, Sinus Discomfort - Risk Factors Pulmonary Embolism Risk Factors: Negative Cardiac Risk Factors: Negative Pseudomonas Risk Factors: Negative Tuberculosis Risk Factors: Negative - Allergies/Home Medications Allergies/Adverse Reactions: Allergies Allergy/AdvReac Type Severity Reaction Status Date / Time alcohol Allergy Headache Verified 03/23/19 14:14 ampicillin Allergy Hives Verified 03/23/19 14:14 clarithromycin [From Biaxin] Allergy Hives Verified 03/23/19 14:14 indomethacin Allergy Headache Verified 03/23/19 14:14 levofloxacin [From Levaquin] Allergy Muscle Ache Verified 03/23/19 14:14 mirabegron [From Myrbetriq] Allergy increased Verified 03/23/19 14:14 BP montelukast Allergy Hives Verified 03/23/19 14:14 nifedipine Allergy Swelling Verified 03/23/19 14:14 of feet, burning nizatidine [From Axid] Allergy Headache Verified 03/23/19 14:14 oxybutynin [From Ditropan] Allergy increased Verified 03/23/19 14:14 BP saccharin Allergy Hives Verified 03/23/19 14:14 sucralfate Allergy metallic Verified 03/23/19 14:14 taste sulfamethoxazole Allergy Hives Verified 03/23/19 14:14 [From Bactrim] trimethoprim [From Bactrim] Allergy Hives Verified 03/23/19 14:14 Home Medications: Home Medications Azithromycin 500 mg PO DAILY 03/23/19 [History Confirmed 03/23/19] Citalopram TAB* [Celexa TAB*] 20 mg PO DAILY 03/23/19 [History Confirmed ] Guaifenesin/Dextromethorphan [Mucinex Dm ER 600-30 mg Tablet] 1 each PO Q12H PRN 03/23/19 [History Confirmed 03/23/19] PMH/Surg Hx/FS Hx/Imm Hx Previously Healthy: Yes - has frequent OM and strep throat - Surgical History Surgical History: Yes Surgery Procedure, Year, and Place: Hysterectomy, right knee surgery-total replacement,right ankle, ligament, bunionectomy bilat, abdominal lap surg, synovial cyst from spine Other Surgical History: LEFT EAR TUBE - Family History Known Family History: Positive: Cardiac Disease - Social History Occupation: Employed Full-time Lives: With Family Alcohol Use: None Alcohol Amount: allergic to it Substance Use Type: None Smoking Status (MU): Former Smoker Amount Used/How Often: 1 ppd Have You Smoked in the Last Year: No When Did the Patient Quit Smoking/Using Tobacco: 1993 - Immunization History Most Recent Influenza Vaccination: [id number] Most Recent Pneumonia Vaccination: Never Review of Systems All Other Systems Reviewed And Are Negative: Yes Constitutional: Positive: Fatigue Skin: Positive: Negative Eyes: Positive: Negative ENT: Positive: Sinus Congestion, Sinus Pain/Tenderness Respiratory: Positive: Cough Cardiovascular: Positive: Negative Gastrointestinal: Positive: Negative Genitourinary: Positive: Negative Motor: Positive: Negative Neurovascular: Positive: Negative Musculoskeletal: Positive: Myalgia Neurological: Positive: Headache Psychological: Positive: Negative Is Patient Immunocompromised?: No Physical Exam Triage Information Reviewed: Yes Appearance: Ill-Appearing Vital Signs: Initial Vital Signs Temp 98.5 F 03/23/19 14:19 Pulse 78 03/23/19 14:19 Resp 17 03/23/19 14:19 BP 149/80 03/23/19 14:19 Pulse Ox 99 03/23/19 14:19 Vital Signs Reviewed: Yes Eye Exam: Normal ENT: Positive: Nasal congestion, Sinus tenderness Dental Exam: Normal Neck exam: Normal Respiratory Exam: Normal Respiratory: Positive: Normal breath sounds, No respiratory distress Cardiovascular Exam: Normal Musculoskeletal Exam: Normal Neurological Exam: Normal Psychological Exam: Normal Skin Exam: Normal Respiratory Course/Dx - Course Course Of Treatment: I discussed with the pt viral vs bacterial and discussed my PE with pt and stated that pt should follow up with PCP as soon as possible and to sek medical attention at the closest ER if symptoms did not improve. Pt stated that she has not taken any OTC decongestant or "cold" relieving medication. - Differential Dx/Diagnosis Differential Diagnosis/HQI/PQRI: Asthma, Bronchitis, Pulmonary Embolism Provider Diagnosis: Viral syndrome, Cough in adult Discharge ED - Sign-Out/Discharge Documenting (check all that apply): Patient Departure All imaging exams completed and their final reports reviewed: No Studies - Discharge Plan Condition: Stable Disposition: HOME Prescriptions: Albuterol HFA INHALER* [Ventolin HFA Inhaler*] 1 puff INH Q6H PRN #1 mdi PRN Reason: Sob/Wheezing Patient Education Materials: Viral Syndrome (ED), Acute Cough (ED) Referrals: Olaf Glaser MD [Primary Care Provider] - 3 Days Additional Instructions: Please follow up with your PCP as soon as needed. - Billing Disposition and Condition Condition: STABLE Disposition: Home
== END 2019-03-23 14:59 | disposition home or self-care (01) ==
LOC: UCCORT 12:12
DX: R05 Cough (principal); R07.89 Other chest pain; R09.81 Nasal congestion; R53.83 Other fatigue; R51 Headache; M79.10 Myalgia, unspecified site; Z88.0 Allergy status to penicillin; Z91.09 Other allergy status, other than to drugs and biological substances; Z88.1 Allergy status to other antibiotic agents; Z88.8 Allergy status to other drugs, medicaments and biological substances; Z88.2 Allergy status to sulfonamides; Z87.891 Personal history of nicotine dependence
CPT/HCPCS: 99212; G0463